=== PATIENT | female | born 1955 | race Caucasian/White ===

== ENCOUNTER 2017-06-16 09:55 | Inpatient (IN) ==
[2017-06-15 18:27] LABS: Basophils # (Auto) 0 K/mcL (0.0-0.3); Basophils % (Auto) 0.4 % (0.0-2.0); Eosinophils # (Auto) 0.2 K/mcL (0.0-0.7); Eosinophils % (Auto) 3.1 % (0.0-7.0); Granulocytes % (Auto) 48.6 % (38.0-78.0); Lymphocytes # (Auto) 3.4 K/mcL (1.5-4.8); Lymphocytes % (Auto) 42.7 % (15.5-49.0); Mean Cell Volume 90.8 fL (80.0-100.0); Mean Corpuscular HGB Conc 33.3 g/dL (31.0-36.0); Mean Corpuscular Hemoglobin 30.2 pg (26.0-34.0); Monocytes # (Auto) 0.4 K/mcL (0.1-0.9); Monocytes % (Auto) 5.2 % (1.0-12.0); Platelet Count 245 K/mcL (140-440); RBC 4.62 M/mcL (4.00-5.20); Red Cell Distribution Width 14.5 % (11.5-14.5)
[2017-06-15 19:33] LABS: Blood Urea Nitrogen 18 mg/dl (8-23)
[2017-06-15 20:15] LABS: Appearance,Urine CLEAR; Bilirubin,Urine NEG (NEG); Color,Urine YELLOW; Glucose,Urine (UA) NEGATIVE (NEG); Leukocyte Esterase,Urine NEG /uL (NEG); Protein,Urine NEG (NEG); Specific Gravity,Urine 1.014 (1.000-1.035); Urine Blood NEG mg/dL (<0.03); Urobilinogen,Urine NEG (NEG)
[~2017-06-16 09:55] MED LIST: CELECOXIB 200 MG CAPSULE PO SCH; PREGABALIN 75 MG CAPSULE PO SCH; ceFAZolin 1 GM VIAL IV SCH; oxyCODONE 10 MG TAB.ER.12H PO SCH
--- NOTE | 2017-06-16 12:15 | General Surgery Progress Note ---
Surgical - Auxillary Note - Subjective Patient Information: Note initiated : 06/16/17 at 12:12 pm Service Date, if different from initiated Date: [] Patient: Marija Duncan 62 y/o F admitted on 06/16/17 for Total Shoulder Arthroplasty with Bicep tenodesis. Chief Complaint: [abnormal EKG read by nicole, possible ischemia er visit 1 yr ago for dizziness, no card w/u done has sscp occ, states is her typical gerd no other card sxs extensive d/w pt and of risks for proceeding, <5% for MACE will need to f/u w/ card post op for card eval based on abn ekg and sscp sxs pt understands, agrees and wishes to proceed. ]
[2017-06-16] MEDS ORDERED: GLYCOPYRROLATE 0.2 MG/ML VIAL IV ONE (13:05)
[2017-06-16] MEDS ORDERED: ONDANSETRON 4 MG/2 ML VIAL IV ONE (13:05)
[2017-06-16] MEDS ORDERED: LIDOCAINE HCL/PF 100 MG/5 ML SYRINGE IV ONE (13:05)
[2017-06-16] MEDS ORDERED: KETAMINE 100 MG/ML ML IV ONE (13:05)
[2017-06-16] MEDS ORDERED: MIDAZOLAM 2 MG/2 ML VIAL IV ONE (13:05)
[2017-06-16] MEDS ORDERED: HYDROmorphone 2 MG/ML VIAL IV ONE (13:05)
[2017-06-16] MEDS ORDERED: PROPOFOL 200 MG/20 ML VIAL IV ONE (13:05)
[2017-06-16] MEDS ORDERED: TRANEXAMIC ACID 1,000 MG/10 ML VIAL IV ONE ×2 (13:05→14:23)
[2017-06-16] MEDS ORDERED: MEPERIDINE 50 MG/ML INJECTION IV PRN (13:56)
[2017-06-16] MEDS ORDERED: METHOCARBAMOL 1,000 MG/10 ML VIAL IV PRN (13:56)
[2017-06-16] MEDS ORDERED: IPRATROPIUM/ALBUTEROL 3 ML AMPUL.NEB NEB PRN (13:56)
[2017-06-16] MEDS ORDERED: HYDROmorphone 2 MG/ML VIAL IV PRN (13:56)
[2017-06-16] MEDS ORDERED: PROMETHAZINE 25 MG/ML VIAL IV PRN (13:56)
[2017-06-16] MEDS ORDERED: ACETAMINOPHEN 1,000 MG/100 ML BOTTLE IV ONE (13:56)
[2017-06-16] MEDS ORDERED: ONDANSETRON 4 MG/2 ML VIAL IV PRN ×2 (13:56→14:23)
[2017-06-16] MEDS ORDERED: LACTATED RINGERS 1,000 ML IV SCH (14:00)
[2017-06-16] MEDS ORDERED: POLYETHYLENE GLYCOL 3350 17 GM PACKET PO PRN (14:23)
[2017-06-16] MEDS ORDERED: MAGNESIUM HYDROXIDE 30 ML ORAL.SUSP PO PRN (14:23)
[2017-06-16] MEDS ORDERED: BISACODYL 10 MG SUPP.RECT PR PRN (14:23)
[2017-06-16] MEDS ORDERED: FLEETS ADULT ENEMA PR PRN (14:23)
[2017-06-16] MEDS ORDERED: BENZOCAINE/MENTHOL 1 LOZENGE PO PRN (14:23)
--- NOTE | 2017-06-16 14:23 | Brief Operative Note ---
Date of procedure: 06/16/17 Pre-op diagnosis: Left shoulder severe OA Post-op diagnosis: same Procedure: 1) Left total shoulder arthroplasty 2) Biceps tenodesis Grafts/Implants: Yes (Tornier Aequalis 43x16 resurfacing head, M35 cortiloc glenoid) Anesthesia: GETA Findings: severe arthritis Complications: none Surgeon: Froylan Colindres Relay Shop Tester: Juan R Lowery Estimated blood loss (cc): 100 Specimens Removed/Pathology: none sent Condition: stable Disposition: PACU
[2017-06-16] MEDS ORDERED: DOCUSATE SODIUM 100 MG CAPSULE PO PRN (14:28)
[2017-06-16] MEDS ORDERED: ALBUTEROL SULFATE 1 PUFF INHALER INH PRN (14:28)
[2017-06-16] MEDS ORDERED: BUPIVACAINE 0.5% 50 ML VIAL IJ ONE (14:44)
--- NOTE | 2017-06-16 15:05 | Operative Note ---
DATE OF OPERATION: 06/16/2017 PREOPERATIVE DIAGNOSIS: Left shoulder severe osteoarthritis. POSTOPERATIVE DIAGNOSIS: Left shoulder severe osteoarthritis. PROCEDURE PERFORMED: 1. Left total shoulder arthroplasty using the DePuy Aequalis 43 x 16 resurfacing head and a Cortiloc medium 35 glenoid. 2. Biceps tenodesis. SURGEON: Froylan Colindres MD. AIRLINE CAPTAIN: Pan Lowery PA-C. ANESTHESIA: General. DRAINS: None. SPECIMENS: Biceps stump which was discarded. BLOOD LOSS: 100 mL. POSTOPERATIVE CONDITION: Stable. INDICATIONS FOR SURGERY: This is a 62-year-old female who has had longstanding multi-year history of severe left shoulder pain. Radiographs showed severe [id number] osteoarthritis. FINDINGS AT SURGERY: As above. Post implantation showed good component position, joint stability and range of motion. PROCEDURE IN DETAIL: The patient had been seen preoperatively and informed consent had been obtained after discussion of risks and benefits of surgery. Risks including, but not limited to, bleeding, possibly requiring transfusion; infection, possibly requiring implant removal and prolonged IV antibiotics; injury to nerves, blood vessels, other surrounding structures; anesthetic risks; incomplete or no resolution of symptoms; dislocation; stiffness; pain; popping; possibility of needing further revision surgery. She understood these risks and wished to proceed. Correct operative site was marked in preoperative holding and patient was taken to the operating room and general anesthesia was induced. She was carefully positioned in the beach chair position and pressure points carefully padded. Left shoulder and upper extremity were then carefully prepped and draped in normal sterile fashion, and a time-out was performed verifying patient name, operative site, and plan. A standard deltopectoral incision was made with scalpel through skin and subcutaneous tissue and then hemostasis was obtained with Bovie cautery. Careful blunt dissection was taken down onto the cephalic vein and then Irrisept was irrigated. We dissected bluntly medial to the cephalic vein and blunt finger dissection was used to develop the subdeltoid space. Wright deltoid retractor was placed. The lateral edge of the conjoined tendon was identified and blue handle retractor placed underneath. We then irrigated Irrisept again. The biceps was palpated and then unroofed. We aspirated a large joint effusion. We amputated the biceps off the glenoid and a large curved osteotome was used to perform a lesser tuberosity osteotomy to detach the subscapularis. Traction stitch was placed around this and then humeral head was dislocated out anteriorly. Capsule was released around the inferior neck. Curved osteotome was used to remove osteophyte and then the glenoid was exposed, subluxing the humeral head posteriorly. We then circumferentially excised the labrum and then carefully released capsule right on bone around the inferior portion of the glenoid. Once we had adequate glenoid exposure, we sized this to a 35 curvature and a size medium. We used a 10 degree angled guide pin guide and placed this. We then used the reamer for the medium 35 and reamed until we had contacted bone circumferentially. We then drilled over the guide pin for the central peg and then the peripheral peg drill guide was placed, and we drilled our three peripheral pegs. We trialed the trial and it seated well, so we opened a Cortiloc medium 35 glenoid component. We irrigated the joint with Irrisept. DBX was placed in the central flutes of the glenoid and cement was mixed. We then pulse lavaged with saline and then injected the cement into the three peripheral holes, pressurizing, and then impacted the glenoid component until it was fully seated. We held this absolutely still until cement had fully hardened. We then redislocated our humeral head and sized this to a 43. We used the guide to place our guide pin and then reamed down until we had contacted bone circumferentially. She did have a small cyst in the central part of the head which we did a limited amount of curetting. We used the punch and then irrigated with Irrisept. After a minute we pulse lavaged and then placed the remainder of the DBX putty in the central cyst. We then impacted the implant until it was fully seated. We checked that we did have a posterior subluxation of 50%. The joint was irrigated with Irrisept, after a minute pulse lavage, and then we used a pin to create two holes in the biceps intertubercular groove. We then used #2 FiberWire through these holes around the lesser tuberosity fragment in a [id number] stitch to repair our subscapularis. We also placed several more [id number] in the rotator interval proximally and then used a free needle to pass our traction stitch through the biceps and through bone laterally for our tenodesis. Another Irrisept irrigation was done, after a minute more pulse lavage, and then running #1 Vicryl stitch was used for deltopectoral closure. Then a final Irrisept irrigation was done, after a minute final pulse lavage, then 2-0 Monocryl for subcutaneous and vicente for skin. Xeroform and sterile dressing were applied, and then the arm was placed in an abductor immobilizer. The patient was then awakened, extubated, and transferred to recovery in stable condition. HARDY:radha Job ID: [id number] Doc ID: [id number] Froylan Colindres MD
[2017-06-16] MEDS: KETOROLAC 30 MG/ML VIAL IV PRN ×2 (15:13→21:19)
[2017-06-16] MEDS: fentaNYL 100 MCG/2 ML VIAL IV PRN ×2 (15:15→15:23)
--- NOTE | 2017-06-16 15:31 | XRay Report ---
HISTORY: Reason for Exam:Post-OP Total Shoulder FINDINGS: There is a well-positioned left shoulder prosthesis. No fracture or abnormal soft tissue calcification is present. IMPRESSION: Well-positioned left shoulder prosthesis Interpreted and Authenticated by: Hunter Zaldivar 06/16/17
[2017-06-16] MEDS ORDERED: hydrALAZINE 20 MG/ML VIAL IV ONE (16:26)
[2017-06-16] MEDS: 0.9 % SODIUM CHLORIDE 1,000 ML IV SCH (17:09)
[2017-06-16] MEDS: OXYBUTYNIN CHLORIDE 5 MG TABLET PO SCH ×2 (17:10→20:27)
[2017-06-16] MEDS: ceFAZolin 1 GM VIAL IV SCH (20:27)
[2017-06-16] MEDS: 0.9 % SODIUM CHLORIDE 10 ML SYRINGE IV SCH (20:28)
[2017-06-16] MEDS: DOCUSATE SODIUM 100 MG CAPSULE PO SCH (20:28)
[2017-06-16] MEDS ORDERED: SENNOSIDES 1 TABLET PO SCH (21:00)
[2017-06-16] MEDS: oxyCODONE/APAP 5/325MG TABLET PO PRN (22:00)
[2017-06-17] MEDS: 0.9 % SODIUM CHLORIDE 1,000 ML IV SCH ×2 (00:28→09:08)
[2017-06-17] MEDS: oxyCODONE/APAP 5/325MG TABLET PO PRN ×3 (02:39→09:30)
[2017-06-17] MEDS: 0.9 % SODIUM CHLORIDE 10 ML SYRINGE IV SCH (04:45)
[2017-06-17] MEDS: ceFAZolin 1 GM VIAL IV SCH (04:45)
[2017-06-17] MEDS ORDERED: OMEPRAZOLE 20 MG CAPSULE PO SCH (07:30)
[2017-06-17] MEDS ORDERED: LEVOTHYROXINE 150 MCG TABLET PO SCH (07:30)
[2017-06-17] MEDS ORDERED: LEVOTHYROXINE 25 MCG TABLET PO SCH (07:30)
--- NOTE | 2017-06-17 07:58 | Discharge Summary ---
Ortho Discharge - TSA - Patient Instructions Diet: Regular Diet Activity: non weight bearing Total Shoulder Protocol: Leave immobilizer in place except for bathing and ROM. Abduction pillow. Continue to wear sling until seen by physician. Codman Pendulum : These exercises use momentum produced by your body to move your shoulder joint. Bend your knees and shift your weight to your front leg, then back, allowing your arm to swing in the same directions. Using the same technique, alternately shift your weight between your right and left legs, allowing your arm to swing from side to side. These exercises are also performed in counterclockwise and clockwise circular motions. Typically these exercises are performed several times per day, for a set number repetitions or minutes, such as 20 times in a row or 5 minutes at a time. Dressing Care: May shower in 2 days, Aquacel Ag - leave on for 5 days - Follow Up Plan Follow Up Appointments: Froylan Colindres MD [Physician] - Disposition: Home, Self-Care Prognosis: Good Rehab Potential: Good - Orders For Discharge Additional Discharge Orders: Physical Therapy at Discharge - TSA Location: Determined By Patient Brace/Splint Location: Determined By Patient
[2017-06-17] MEDS ORDERED: CEPHALEXIN 250 MG CAPSULE PO SCH (09:00)
[2017-06-17] MEDS ORDERED: CELECOXIB 200 MG CAPSULE PO SCH (09:00)
[2017-06-17] MEDS ORDERED: DULoxetine 30 MG CAPSULE PO SCH (09:00)
[2017-06-17] MEDS ORDERED: buPROPion 150 MG TAB.SR.12H PO SCH (09:00)
[2017-06-17] MEDS: DOCUSATE SODIUM 100 MG CAPSULE PO SCH (09:04)
[2017-06-17] MEDS: OXYBUTYNIN CHLORIDE 5 MG TABLET PO SCH (09:04)
== END 2017-06-17 09:35 | disposition home or self-care (01) | DRG 483 ==
LOC: MEDSUR 09:55
PROVIDERS: ADMIT Orthopaedic Surgery; ATTEND Orthopaedic Surgery

== ENCOUNTER 2018-04-20 06:51 | Inpatient (IN) ==
[2018-04-14 15:28] LABS: Appearance,Urine CLEAR; Bilirubin,Urine NEG (NEG); Color,Urine YELLOW; Glucose,Urine (UA) NEGATIVE (NEG); Leukocyte Esterase,Urine NEG /uL (NEG); Protein,Urine NEG (NEG); Specific Gravity,Urine 1.017 (1.000-1.035); Urine Blood NEG mg/dL (<0.03); Urobilinogen,Urine NEG (NEG)
[2018-04-14 16:56] LABS: Basophils # (Auto) 0 K/mcL (0.0-0.3); Basophils % (Auto) 0.3 % (0.0-2.0); Eosinophils # (Auto) 0 K/mcL (0.0-0.7); Eosinophils % (Auto) 0.1 % (0.0-7.0); Granulocytes % (Auto) 70.8 % (38.0-78.0); Lymphocytes # (Auto) 2.7 K/mcL (1.5-4.8); Lymphocytes % (Auto) 21.9 % (15.5-49.0); Mean Cell Volume 92.1 fL (80.0-100.0); Mean Corpuscular HGB Conc 32.4 g/dL (31.0-36.0); Monocytes # (Auto) 0.8 K/mcL (0.1-0.9); Monocytes % (Auto) 6.9 % (1.0-12.0); Platelet Count 288 K/mcL (140-440); RBC 4.79 M/mcL (4.00-5.20); Red Cell Distribution Width 14.9 % (11.5-14.5)
[2018-04-14 17:36] LABS: Estimated Average Glucose(eAG) 111 mg/dL; Hemoglobin A1C 5.5 % HGB (4.0-6.0)
[2018-04-20] MEDS ORDERED: PREGABALIN 75 MG CAPSULE PO SCH (07:00)
[2018-04-20] MEDS ORDERED: CELECOXIB 200 MG CAPSULE PO SCH (07:00)
[2018-04-20] MEDS ORDERED: ceFAZolin 1 GM VIAL IV SCH (07:00)
[2018-04-20] MEDS ORDERED: oxyCODONE 10 MG TAB.ER.12H PO SCH (07:00)
[2018-04-20] MEDS ORDERED: HEPARIN 10,000 UNIT/ML VIAL IR ONE (09:06)
[2018-04-20] MEDS ORDERED: HEPARIN 20,000 UNIT/ML VIAL IR ONE (09:07)
[2018-04-20] MEDS ORDERED: LIDOCAINE HCL/PF 100 MG/5 ML SYRINGE IV ONE (10:35)
[2018-04-20] MEDS ORDERED: PROPOFOL 200 MG/20 ML VIAL IV ONE (10:35)
[2018-04-20] MEDS ORDERED: DEXAMETHASONE 10 MG/ML VIAL IV ONE (10:35)
[2018-04-20] MEDS ORDERED: TRANEXAMIC ACID 1,000 MG/10 ML VIAL IV ONE (10:35)
[2018-04-20] MEDS ORDERED: MIDAZOLAM 5 MG/5 ML VIAL IV ONE (10:35)
[2018-04-20] MEDS ORDERED: ONDANSETRON 4 MG/2 ML VIAL IV ONE (10:35)
[2018-04-20] MEDS ORDERED: FLUMAZENIL 0.1 MG/ML ML IV PRN (11:32)
[2018-04-20] MEDS ORDERED: NALOXONE HCL 0.4 MG/ML VIAL IV PRN (11:32)
[2018-04-20] MEDS ORDERED: ACETAMINOPHEN 1,000 MG/100 ML BOTTLE IV ONE (11:32)
[2018-04-20] MEDS ORDERED: IPRATROPIUM/ALBUTEROL 3 ML AMPUL.NEB NEB PRN (11:32)
[2018-04-20] MEDS ORDERED: diphenhydrAMINE 50 MG/ML VIAL IV PRN (11:32)
[2018-04-20] MEDS ORDERED: fentaNYL 100 MCG/2 ML VIAL IV PRN (11:32)
[2018-04-20] MEDS ORDERED: ONDANSETRON 4 MG/2 ML VIAL IV PRN ×2 (11:32→12:10)
[2018-04-20] MEDS ORDERED: PROMETHAZINE 25 MG/ML VIAL IV PRN (11:32)
[2018-04-20] MEDS ORDERED: MEPERIDINE 25 MG/ML SYRINGE IV PRN (11:32)
[2018-04-20] MEDS ORDERED: LACTATED RINGERS 250 ML IV PRN (11:32)
[2018-04-20] MEDS ORDERED: KETOROLAC 15 MG/ML VIAL IV PRN (11:32)
[2018-04-20] MEDS ORDERED: LACTATED RINGERS 1,000 ML IV SCH (11:45)
--- NOTE | 2018-04-20 12:09 | Brief Operative Note ---
Date of procedure: 04/20/18 Pre-op diagnosis: Left hip DJD Post-op diagnosis: same Procedure: Left anterior total hip arthroplasty Grafts/Implants: Yes (Depuy Actis 5 Hi stem, +1.5 36 delta head, 56 cup, +2 altrx liner) Anesthesia: spinal, GLMA Findings: severe arthritis Complications: none Surgeon: Froylan Colindres Physical Sciences Professor: Juan R Lowery Estimated blood loss (cc): 250 Specimens Removed/Pathology: none sent Condition: stable Disposition: PACU
[2018-04-20] MEDS ORDERED: KETOROLAC 30 MG/ML VIAL IV PRN (12:10)
[2018-04-20] MEDS ORDERED: BENZOCAINE/MENTHOL 1 LOZENGE PO PRN (12:10)
[2018-04-20] MEDS ORDERED: TRANEXAMIC ACID 1,000 MG/10 ML VIAL IV SCH (12:10)
[2018-04-20] MEDS ORDERED: POLYETHYLENE GLYCOL 3350 17 GM PACKET PO PRN (12:10)
[2018-04-20] MEDS ORDERED: BISACODYL 10 MG SUPP.RECT PR PRN (12:10)
[2018-04-20] MEDS ORDERED: FLEETS ADULT ENEMA PR PRN (12:10)
[2018-04-20] MEDS ORDERED: MAGNESIUM HYDROXIDE 30 ML ORAL.SUSP PO PRN (12:10)
[2018-04-20] MEDS ORDERED: ALBUTEROL SULFATE 1 PUFF INHALER INH PRN (12:13)
[2018-04-20] MEDS ORDERED: DOCUSATE SODIUM 100 MG CAPSULE PO PRN (12:13)
--- NOTE | 2018-04-20 13:09 | XRay Report ---
CLINICAL INFORMATION: Left hip replacement TECHNIQUE: 0.4 minutes fluoroscopy utilized by Dr. Colindres. Left total hip arthroplasty performed. Intraoperative spot films obtained IMPRESSION: Intraoperative fluoroscopy utilized for left hip replacement Interpreted and Authenticated by: Sincere Mckenzie 04/20/18
--- NOTE | 2018-04-20 13:10 | Operative Note ---
DATE OF OPERATION: 04/20/2018 PREOPERATIVE DIAGNOSIS: Left hip severe osteoarthritis. POSTOPERATIVE DIAGNOSIS: Left hip severe osteoarthritis. PROCEDURE PERFORMED: Left anterior total hip arthroplasty placing a DePuy Actis size 5 high offset femoral stem, a +1.5, 36 mm delta ceramic head ball, a 56 Sutton cup with a +2 AltrX liner. SURGEON: Froylan Colindres MD RADIO FREQUENCY DESIGN ENGINEER: Pan Lowery PA-C ANESTHESIA: Spinal plus general. DRAINS: None. SPECIMENS: Femoral head and reamings, which were discarded. BLOOD LOSS: 250 mL COMPLICATIONS: None. POSTOPERATIVE CONDITION: Stable. INDICATIONS FOR SURGERY: This is a 62-year-old female who has had longstanding progressive worsening left hip pain. Radiographs showed severe [id number] osteoarthritis. FINDINGS AT SURGERY: She had severe arthritis with a very large joint effusion. Post-implantation showed good component position with leg length equality and offset. PROCEDURE IN DETAIL: The patient had been seen preoperatively and informed consent had been obtained after discussion of risks and benefits of surgery. Risks including, but not limited to, bleeding, possibly requiring transfusion; infection, possibly requiring implant removal and prolonged IV antibiotics; injury to nerves, blood vessels, and other surrounding structures; anesthetic risks, leg length discrepancy, dislocation; fracture; DVT and pulmonary embolus risks; and the possibility of needing further revision surgery. She understood these risks and wished to proceed. Correct operative site was marked and the patient was given spinal anesthesia. She was then taken to the operating room and LMA general given. She was carefully positioned on the fracture table and then the left hip and groin were carefully prepped and draped in normal sterile fashion. A timeout was performed verifying patient name, operative site, and plan. Ioban was used to cover all skin surfaces and the scalpel was used to make a standard anterior incision through skin and subcutaneous tissue. Hemostasis was obtained with Bovie cautery. Careful blunt dissection was taken down on the tensor fascia and then this was undermined circumferentially. IrriSept was irrigated and then a ring retractor placed. Tensor fascia was incised in line with the muscle fibers and then careful blunt dissection taken medial to the muscle belly. Blunt cobra retractors were placed on the superior and inferior neck and upon placement of the inferior cobra the capsule was punctured and a very large joint effusion was suctioned. Circumflex vessels were coagulated and cut and vastus fascia split distally. Anterior capsulectomy was performed and capsule release was taken out towards the trochanters. Traction was placed on the leg and corkscrew placed in the femoral head. Osteotome was used under fluoro to identify our approximate neck cut trajectory and then oscillating tip saw used to make our osteotomy. The femoral head was removed and the acetabulum was exposed. Soft tissue was removed from the periphery as well as from the floor using Bovie and then we began reaming initially directly medializing to the tear drop and then increasing reamer size and angle. We did not get any rim ream until a 55 reamer. We opened a 56 3-hole Sutton cup. The acetabulum was irrigated with IrriSept, after a minute it was pulse lavaged with saline. The [id number] was used to impact the cup at approximately 35 to 40 degrees of inclination and about 25 to 30 degrees of anteversion. We did get good pressfit. I trialled a +2 liner trial, screwing this in the cup. We then removed traction, externally rotated the leg and released capsule around the medial neck posteriorly then to the lesser trochanter. The leg was then extended and adducted. Bovie was used to release capsule out towards the greater trochanter. After we had adequate proximal femur exposure, we used a box osteotome to get gain canal entry. An awl was used to identify canal trajectory, which was very tight distally. We then used a rongeur and rasp to lateralize. We sequentially broached up to a size 3 before it seemed to be getting pressfit. We went ahead and trialed with a +1.5 head ball and a high offset neck trial. Hip was reduced without excessive tension. AP pelvis was taken to verify neutral rotation and AP of the nonoperative and operative hips were overlaid. Our offset appeared good; however, the leg length appeared little long and the stem also appeared undersized, so we redislocated and removed the trial implants. A rongeur and rasp were used to lateralize more and then we broached up to a size 5. We were able to seat this down below the neck cut several more millimeters, so we calcar planed down. We removed the 5 trial. The femoral canal was irrigated with IrriSept. We re-exposed the acetabulum. A +2 AltrX liner was opened. The liner trial was removed and the definitive liner was aligned and impacted after placing a center hole cover. We checked that all tabs were flush with a tonsil and then traction was verified to be off and we re-exposed the proximal femur. We copiously pulse lavaged with saline and then the 5 high offset stem was impacted. This did seat down on our neck cut, so we opened a +1.5, 36 mm delta ceramic head ball. The stem was carefully cleaned and dried and then head ball briskly impacted with multiple blows from the mallet. We then reduced the hip again without excessive tension. Final fluoro images were saved and printed. We irrigated the joint with IrriSept, after a minute pulse lavaged with saline. Tensor fascia was closed with two #1 running Vicryl stitches, one running proximal and one running distal. The ring retractor was removed and IrriSept was irrigated again and after a minute pulse lavaged with saline and then fat was tacked to fascia with Vicryl, as well as several deep fat layer stitches with Vicryl; 2-0 Monocryl was used for subq and vicente for skin. Xeroform and a sterile dressing were applied. The patient was then transferred to [facility], extubated, and taken to recovery in satisfactory condition. BJB:asad Job ID: [id number] Doc ID: [id number] Froylan Colindres MD
--- NOTE | 2018-04-20 13:11 | XRay Report ---
CLINICAL INFORMATION: Postsurgical follow-up TECHNIQUE: AP pelvis. AP and crosstable lateral left hip COMPARISON: None. FINDINGS: Status post left total hip arthroplasty. Anatomic alignment demonstrated. There is postsurgical soft tissue gas. There are skin viecnte overlying the left hip. IMPRESSION: Left total hip arthroplasty Interpreted and Authenticated by: Sincere Mckenzie 04/20/18
[2018-04-20] MEDS: 0.9 % SODIUM CHLORIDE 1,000 ML IV SCH (16:02)
[2018-04-20] MEDS: 0.9 % SODIUM CHLORIDE 10 ML SYRINGE IV SCH ×2 (16:02→21:40)
[2018-04-20] MEDS: OXYBUTYNIN CHLORIDE 5 MG TABLET PO SCH ×2 (16:02→21:39)
[2018-04-20] MEDS: ceFAZolin 1 GM VIAL IV SCH (17:46)
[2018-04-20] MEDS: HYDROcodone/APAP 10/325MG TABLET PO PRN ×2 (18:36→22:40)
[2018-04-20] MEDS ORDERED: SENNOSIDES/DOCUSATE SODIUM 1 TAB TABLET PO SCH (21:00)
[2018-04-20] MEDS ORDERED: SENNOSIDES 1 TABLET PO SCH (21:00)
[2018-04-20] MEDS: DOCUSATE SODIUM 100 MG CAPSULE PO SCH (21:38)
[2018-04-20] MEDS: ASPIRIN 325 MG ENTERIC COATED TABLET PO SCH (21:39)
[2018-04-21] MEDS: 0.9 % SODIUM CHLORIDE 1,000 ML IV SCH (00:53)
[2018-04-21] MEDS: ceFAZolin 1 GM VIAL IV SCH (01:00)
[2018-04-21] MEDS: HYDROcodone/APAP 10/325MG TABLET PO PRN ×3 (03:30→09:43)
[2018-04-21] MEDS: 0.9 % SODIUM CHLORIDE 10 ML SYRINGE IV SCH ×3 (03:32→06:02)
[2018-04-21] MEDS ORDERED: LEVOTHYROXINE 150 MCG TABLET PO SCH (07:30)
[2018-04-21] MEDS ORDERED: OMEPRAZOLE 20 MG CAPSULE PO SCH (07:30)
--- NOTE | 2018-04-21 07:51 | Discharge Summary ---
Providers - Providers Patient information: Note initiated : 04/21/18 at 7:48 am Service Date, if different from initiated Date: [] Patient: Marija Duncan 62 y/o F admitted on 04/20/18 for Left Total Hip Arthroplasty. Chief Complaint: [] Discharge date: 04/21/18 Hospitalization Hospital course: Pt was admitted for a MONSERRAT. Pt underwent procedure on the day of admission. Pt discharged on post-op day 1. Pt will take ASA for DVT prophylaxis. Will attend out-pt PT.Will f/u at [facility] in 2 weeks. Discharge diagnosis: L hip OA Exam - Exam Clean and dry: Yes Weight bearing status: as tolerated Ortho Discharge - [facility] - Patient Instructions Diet: Regular Diet Activity: activity as tolerated Total Hip Protocol: Follow activity instructions as provided by Physical Therapy. Dressing Care: May shower in 2 days - Follow Up Plan Disposition: Home, Self-Care Prognosis: Good Rehab Potential: Good Overall status at discharge: patient is progressing back to baseline - Orders For Discharge Prescriptions: Aspirin [Ecotrin] 325 mg PO BID #60 tab.ec HYDROcodone/APAP 10/325MG [[place] 10-325Mg] 1 - 2 tab PO Q4HP PRN #75 tab PRN Reason: Pain Level 3-6 Pending Studies Resuscitation Status Full Code Diet Regular Diet Start WedApr 20 1210 Hydrocodone Bitart/Acetaminophen ([place] 10/325mg) 0 tab PO Q4HP PRN PRN Reason: PAIN LEVEL 3-6 Last Admin: 04/21/18 05:52 Dose: 1 tab Documented by: Admin: 04/21/18 03:30 Dose: 1 tab Documented by: Admin: 04/20/18 22:40 Dose: 2 tab Documented by: Admin: 04/20/18 18:36 Dose: 1 tab Documented by: LILY Aspirin (Ecotrin) 325 mg PO BID [facility] Last Admin: 04/20/18 21:39 Dose: 325 mg Documented by: ADOLPH Docusate Sodium (Colace) 100 mg PO BID [facility] Last Admin: 04/20/18 21:38 Dose: 100 mg Documented by: ADOLPH Levothyroxine Sodium (Synthroid) 150 mcg PO ACB [facility] Last Admin: 04/21/18 07:19 Dose: 150 mcg Documented by: FMF Morphine Sulfate (Morphine) 0 mg IV Q1HP PRN PRN Reason: PAIN LEVEL > 6 Last Admin: 04/21/18 06:02 Dose: 2 mg Documented by: ADOLPH Omeprazole (Prilosec) 20 mg PO ACB [facility] Last Admin: 04/21/18 07:19 Dose: 20 mg Documented by: GEORGINA Oxybutynin Chloride (Ditropan) 5 mg PO TID [facility] Last Admin: 04/20/18 21:39 Dose: 5 mg Documented by: Admin: 04/20/18 16:02 Dose: Not Given Documented by: LILY Senna (Senokot) 2 tab PO HS [facility] Last Admin: 04/20/18 21:38 Dose: 2 tab Documented by: ADOLPH Sodium Chloride (Saline Flush) 10 ml IV Q8 [facility] Last Admin: 04/21/18 06:02 Dose: 10 ml Documented by: Admin: 04/21/18 04:35 Dose: Not Given Documented by: Admin: 04/21/18 03:32 Dose: 10 ml Documented by: Admin: 04/20/18 21:40 Dose: Not Given Documented by: Admin: 04/20/18 16:02 Dose: Not Given Documented by: LILY Shift Summary 04/21/18 02:54 Shift Summary by Mila Chavez Addendum entered by Mila Chavez R.N. 04/21/18 06:10: Second [place] 5-325 given approx. 0600 as well as IV Morphine sulfate 2mg for 8/10 pain to L hip. Addendum entered by Mila Chavez R.N. 04/21/18 03:52: [place] 5-325 one tab given this AM approx. 0330. Original Note: VSS. A&Ox4. Medicated with [place] 10-325 two tabs approx. 2245 with effective results. Ice on/off. Dressing to L hip dry and intact with small amount of shadow drainage present. IV to L FA is SL. Up to bathroom with FWW and SBA. Post void bladder scan was 12cc. Uses call light to make needs known. Foot pumps in place when in bed. Initialized on 04/21/18 02:54 - END OF NOTE
[2018-04-21] MEDS ORDERED: buPROPion 150 MG TAB.XL.24H PO SCH (09:00)
[2018-04-21] MEDS ORDERED: DULoxetine 30 MG CAPSULE PO SCH (09:00)
[2018-04-21] MEDS: ASPIRIN 325 MG ENTERIC COATED TABLET PO SCH (09:18)
[2018-04-21] MEDS: DOCUSATE SODIUM 100 MG CAPSULE PO SCH (09:18)
[2018-04-21] MEDS: OXYBUTYNIN CHLORIDE 5 MG TABLET PO SCH (09:18)
== END 2018-04-21 13:00 | disposition home or self-care (01) | DRG 470 ==
LOC: MEDSUR 06:51
PROVIDERS: ADMIT Orthopaedic Surgery; ATTEND Orthopaedic Surgery

== ENCOUNTER 2019-01-11 09:48 | Inpatient (IN) ==
[2019-01-05 10:22] LABS: Appearance,Urine CLEAR; Bilirubin,Urine NEG (NEG); Color,Urine STRAW; Culture Indicated,Urine NO; Glucose,Urine (UA) NEGATIVE (NEG); Ketones,Urine NEG (NEG); Leukocyte Esterase,Urine NEG /uL (NEG); Nitrate,Urine NEG (NEG); Protein,Urine NEG (NEG); Specific Gravity,Urine 1.006 (1.000-1.035); Urine Blood NEG mg/dL (<0.03); Urobilinogen,Urine NEG (NEG)
[2019-01-05 11:48] LABS: Basophils # (Auto) 0 K/mcL (0.0-0.3); Basophils % (Auto) 0.4 % (0.0-2.0); Eosinophils # (Auto) 0.1 K/mcL (0.0-0.7); Eosinophils % (Auto) 1.4 % (0.0-7.0); Granulocytes % (Auto) 61.5 % (38.0-78.0); Hematocrit 44.1 % (36.0-48.0); Hemoglobin 14.5 g/dL (12.0-15.0); Lymphocytes # (Auto) 2.5 K/mcL (1.5-4.8); Lymphocytes % (Auto) 31.5 % (15.5-49.0); Mean Cell Volume 92.1 fL (80.0-100.0); Mean Platelet Volume 8.1 fL (7.4-10.4); Monocytes # (Auto) 0.4 K/mcL (0.1-0.9); Monocytes % (Auto) 5.2 % (1.0-12.0); Platelet Count 240 K/mcL (140-440); RBC 4.78 M/mcL (4.00-5.20); Red Cell Distribution Width 14.9 % (11.5-14.5)
[2019-01-05 12:04] LABS: Blood Urea Nitrogen 17 mg/dl (8-23); Calcium 9.6 mg/dl (8.6-10.4); Carbon Dioxide 28 mmol/L (22-30); Chloride 101 mmol/L (96-108); Glomerular Filtration Rate 78; Glucose 101 mg/dL (70-105)
[2019-01-05 12:17] LABS: Estimated Average Glucose(eAG) 120 mg/dL; Hemoglobin A1C 5.8 % HGB (4.0-6.0)
[~2019-01-11 09:48] MED LIST changes: +0.9 % SODIUM CHLORIDE 9 ML, KETOROLAC 30 MG, ROPIVACAINE HCL/PF 49.5 ML, EPINEPHrine 0.... IJ SCH; +IPRATROPIUM/ALBUTEROL 3 ML AMPUL.NEB NEB PRN; +SCOPOLAMINE 1 PATCH PATCH TOPICAL PRN; -ceFAZolin 1 GM VIAL IV SCH; +ceFAZolin 2 GM in DEXTROSE 5% IN WATER 50 ML IV SCH
[2019-01-11] MEDS ORDERED: ONDANSETRON 4 MG/2 ML VIAL IV ONE (15:20)
[2019-01-11] MEDS ORDERED: DEXAMETHASONE 10 MG/ML VIAL IV ONE (15:20)
[2019-01-11] MEDS ORDERED: LIDOCAINE HCL/PF 100 MG/5 ML SYRINGE IV ONE (15:20)
[2019-01-11] MEDS ORDERED: PROPOFOL 200 MG/20 ML VIAL IV ONE (15:20)
[2019-01-11] MEDS ORDERED: MIDAZOLAM 5 MG/5 ML VIAL IV ONE (15:20)
[2019-01-11] MEDS ORDERED: fentaNYL 100 MCG/2 ML VIAL IV ONE (15:20)
[2019-01-11] MEDS ORDERED: hydrALAZINE 20 MG/ML VIAL IV ONE (15:20)
[2019-01-11] MEDS ORDERED: HYDROmorphone 2 MG/ML VIAL IV ONE (15:20)
[2019-01-11] MEDS ORDERED: ROPIVACAINE HCL/PF 20 ML VIAL IJ ONE (15:20)
[2019-01-11] MEDS ORDERED: METHOCARBAMOL 1,000 MG/10 ML VIAL IV PRN (16:42)
[2019-01-11] MEDS ORDERED: PROMETHAZINE 25 MG/ML VIAL IV PRN (16:42)
[2019-01-11] MEDS ORDERED: METOPROLOL TARTRATE 5 MG/5 ML VIAL IV PRN (16:42)
[2019-01-11] MEDS ORDERED: ACETAMINOPHEN 1,000 MG/100 ML BOTTLE IV ONE (16:42)
[2019-01-11] MEDS ORDERED: HYDROmorphone 2 MG/ML VIAL IV PRN ×2 (16:42→17:15)
[2019-01-11] MEDS ORDERED: fentaNYL 100 MCG/2 ML VIAL IV PRN (16:42)
[2019-01-11] MEDS ORDERED: IPRATROPIUM/ALBUTEROL 3 ML AMPUL.NEB NEB PRN (16:42)
[2019-01-11] MEDS ORDERED: ePHEDrine 50 MG/ML AMPUL IV PRN (16:42)
[2019-01-11] MEDS ORDERED: diphenhydrAMINE 50 MG/ML VIAL IV PRN (16:42)
[2019-01-11] MEDS ORDERED: MEPERIDINE 25 MG/ML SYRINGE IV PRN (16:42)
[2019-01-11] MEDS ORDERED: ONDANSETRON 4 MG/2 ML VIAL IV PRN ×2 (16:42→17:15)
[2019-01-11] MEDS ORDERED: NALOXONE HCL 0.4 MG/ML VIAL IV PRN (16:42)
[2019-01-11] MEDS ORDERED: FLUMAZENIL 0.1 MG/ML ML IV PRN (16:42)
[2019-01-11] MEDS ORDERED: ATROPINE SULFATE 0.4 MG/ML VIAL IV PRN (16:42)
[2019-01-11] MEDS ORDERED: LACTATED RINGERS 1,000 ML IV SCH (16:45)
--- NOTE | 2019-01-11 17:14 | Brief Operative Note ---
Date of procedure: 01/11/19 Pre-op diagnosis: Left knee severe DJD Post-op diagnosis: same Procedure: Left robotic assisted total knee arthroplasty Grafts/Implants: Yes Anesthesia: GETA Findings: severe arthritis Complications: none Surgeon: Froylan Colindres Advertising Associate: Juan R Lowery Estimated blood loss (cc): 30 Specimens Removed/Pathology: none sent Condition: stable Disposition: PACU
[2019-01-11] MEDS ORDERED: BENZOCAINE/MENTHOL 1 LOZENGE PO PRN (17:15)
[2019-01-11] MEDS ORDERED: BISACODYL 10 MG SUPP.RECT PR PRN (17:15)
[2019-01-11] MEDS ORDERED: FLEETS ADULT ENEMA PR PRN (17:15)
[2019-01-11] MEDS ORDERED: POLYETHYLENE GLYCOL 3350 17 GM PACKET PO PRN (17:15)
[2019-01-11] MEDS ORDERED: MAGNESIUM HYDROXIDE 30 ML ORAL.SUSP PO PRN (17:15)
[2019-01-11] MEDS ORDERED: TRANEXAMIC ACID 1,000 MG/10 ML VIAL IV ONE (17:15)
[2019-01-11] MEDS ORDERED: ALBUTEROL SULFATE 1 PUFF INHALER INH PRN (17:19)
--- NOTE | 2019-01-11 18:11 | XRay Report ---
CLINICAL INFORMATION: Post-op total knee COMPARISON: None. FINDINGS: Total knee prosthesis is anatomically aligned. No osseous abnormality. Periarticular gas and soft tissue swelling seen as expected. IMPRESSION: Negative Interpreted and Authenticated by: Sincere Reyes 01/11/19
[2019-01-11] MEDS: KETOROLAC 30 MG/ML VIAL IV SCH ×2 (18:44→23:17)
[2019-01-11] MEDS: 0.9 % SODIUM CHLORIDE 1,000 ML IV SCH (18:52)
[2019-01-11] MEDS ORDERED: ASPIRIN 325 MG ENTERIC COATED TABLET PO SCH (21:00)
[2019-01-11] MEDS ORDERED: SENNOSIDES 1 TABLET PO SCH (21:00)
[2019-01-11] MEDS ORDERED: ATORVASTATIN 40 MG TABLET PO SCH (21:00)
[2019-01-11] MEDS: MUPIROCIN OINT 2% 22GM NARES SCH (21:25)
[2019-01-11] MEDS: DOCUSATE SODIUM 100 MG CAPSULE PO SCH (21:26)
[2019-01-11] MEDS: buPROPion 150 MG TAB.XL.24H PO SCH (21:26)
[2019-01-11] MEDS: OXYBUTYNIN CHLORIDE 5 MG TABLET PO SCH (21:26)
[2019-01-11] MEDS: 0.9 % SODIUM CHLORIDE 10 ML SYRINGE IV SCH (21:26)
[2019-01-11] MEDS ORDERED: ASPIRIN 81 MG TAB.CHEW ONE (21:51)
[2019-01-11] MEDS: ceFAZolin 1 GM VIAL IV SCH (23:16)
[2019-01-12] MEDS: HYDROcodone/APAP 10/325MG TABLET PO PRN ×3 (00:15→09:19)
[2019-01-12] MEDS: 0.9 % SODIUM CHLORIDE 1,000 ML IV SCH (04:46)
[2019-01-12] MEDS: ASPIRIN 81 MG TAB.CHEW PO SCH ×2 (06:00→08:53)
[2019-01-12] MEDS: KETOROLAC 30 MG/ML VIAL IV SCH (06:09)
[2019-01-12] MEDS: 0.9 % SODIUM CHLORIDE 10 ML SYRINGE IV SCH (06:09)
[2019-01-12] MEDS: ceFAZolin 1 GM VIAL IV SCH (07:05)
[2019-01-12] MEDS ORDERED: OMEPRAZOLE 20 MG CAPSULE PO SCH (07:30)
[2019-01-12] MEDS ORDERED: LEVOTHYROXINE 150 MCG TABLET PO SCH (07:30)
--- NOTE | 2019-01-12 07:44 | Discharge Summary ---
Providers - Providers Patient information: Note initiated : 01/12/19 at 7:41 am Service Date, if different from initiated Date: [] Patient: Marija Duncan 63 y/o F admitted on 01/11/19 for Left Total Knee Arthroplasty Tha . Chief Complaint: [] Discharge date: 01/12/19 Hospitalization Hospital Course: Pt was admitted for a L TKA. Pt underwent the procedure on the day of admission. Pt was transferred to the floor for IV pain meds, IV abx, and PT. Pt discharged on Post-op day 1. Will take ASA for DVT prophylaxis. Will f/u in 2 weeks. Discharge diagnosis: L knee OA Exam - Exam Clean and dry: Yes Weight bearing status: as tolerated Ortho Discharge - TKA - Patient Instructions Diet: Regular Diet Activity: activity as tolerated Total Knee Protocol: For Total Knee: Start ROM VARUN with stationary bike or rocking chair. Work on gaining full extension of knee. Posterior dislocation precautions provided. Hip abductor strengthening and gait training instructions provided. Apply Cryocuff as instructed. Dressing Care: May shower in 2 days Patient Education: Total Knee Replacement (DC) - Follow Up Plan Follow Up Appointments: Froylan Colindres MD [Physician] - 01/26/19 11:20 am Disposition: Home, Self-Care Prognosis: Good Rehab Potential: Good Overall status at discharge: patient is progressing back to baseline - Orders For Discharge Prescriptions: Aspirin 81 mg PO BID #30 tab.chew Transmission Status: Pending to [facility] HYDROcodone/APAP 10/325MG [[place] 10-325Mg] 1 - 2 tab PO Q4HP PRN #80 tab PRN Reason: Pain Level 3-6 Prescription Printed Pending Studies Resuscitation Status Full Code Diet Consistent Carbohydrate Diet Start WedJan 11 1717 Hydrocodone Bitart/Acetaminophen ([place]wall 10/325mg) 0 tab PO Q4HP PRN PRN Reason: PAIN LEVEL 3-6 Last Admin: 01/12/19 04:45 Dose: 2 tab Documented by: Admin: 01/12/19 00:15 Dose: 2 tab Documented by: VAL Aspirin (Aspirin) 81 mg PO BID [facility] Stop: 01/17/19 23:59 Last Admin: 01/12/19 06:00 Dose: Not Given Documented by: VAL Atorvastatin Calcium (Lipitor) 40 mg PO HS [facility] Last Admin: 01/11/19 21:26 Dose: 40 mg Documented by: VAL Bupropion HCl (Wellbutrin Xl) 150 mg PO BID [facility] Last Admin: 01/11/19 21:26 Dose: 150 mg Documented by: VAL Docusate Sodium (Colace) 100 mg PO BID [facility] Last Admin: 01/11/19 21:26 Dose: 100 mg Documented by: VAL Hydromorphone HCl (Dilaudid) 0 mg IV Q2HP PRN PRN Reason: PAIN LEVEL > 6 Last Admin: 01/11/19 18:45 Dose: 1 mg Documented by: VAL Sodium Chloride (Sodium Chloride 0.9%) 1,000 mls @ 100 mls/hr IV .Q10H [facility] Last Admin: 01/12/19 04:46 Dose: Not Given Documented by: Admin: 01/11/19 18:52 Dose: 100 mls/hr Documented by: VAL Ketorolac Tromethamine (Toradol) 30 mg IV Q6 [facility] Stop: 01/13/19 12:01 Last Admin: 01/12/19 06:09 Dose: 30 mg Documented by: Admin: 01/11/19 23:17 Dose: 30 mg Documented by: Admin: 01/11/19 18:44 Dose: 30 mg Documented by: VAL Levothyroxine Sodium (Synthroid) 150 mcg PO ACB [facility] Last Admin: 01/12/19 07:05 Dose: 150 mcg Documented by: GEORGINA Mupirocin (Bactroban Oint 2%) 1 dose NARES BID [facility] Last Admin: 01/11/19 21:25 Dose: 1 dose Documented by: VAL Omeprazole (Prilosec) 20 mg PO ACB [facility] Last Admin: 01/12/19 07:05 Dose: 20 mg Documented by: GEORGINA Oxybutynin Chloride (Ditropan) 5 mg PO TID [facility] Last Admin: 01/11/19 21:26 Dose: 5 mg Documented by: VAL Senna (Senokot) 2 tab PO [facility] Last Admin: 01/11/19 21:25 Dose: 2 tab Documented by: VAL Sodium Chloride (Saline Flush) 10 ml IV Q8 [facility] Last Admin: 01/12/19 06:09 Dose: 10 ml Documented by: Admin: 01/11/19 21:26 Dose: Not Given Documented by: VLA Shift Summary 01/12/19 04:03 Shift Summary by Deborah Khan The patient is alert and oriented times four, up to void with 1 assist and FWW/gaitbelt with BSC during the NOC and steady gait. Voiding quantity sufficient and last PVR was less than 10 ml, she has tolerated a regular diet and PO fluids without nausea. She has NS infusing at 100/hr in her left wrist, she received IV Dilaudid 1 mg immediately post-op and was medicated with Hydrocodone 10/325 mg 2 tabs twice and this managed her pain a tolerable 0-2/10 level. 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 Plan is to discharge to home with her spouse today. Bedside report/update to be given. Initialized on 01/12/19 04:03 - END OF NOTE
--- NOTE | 2019-01-12 08:21 | Operative Note ---
DATE OF OPERATION: 01/11/2019 PREOPERATIVE DIAGNOSIS: Left knee severe osteoarthritis with valgus deformity. POSTOPERATIVE DIAGNOSIS: Left knee severe osteoarthritis with valgus deformity. PROCEDURE PERFORMED: Left robotic-assisted total knee arthroplasty placing a [place] Triathlon size 6 posterior stabilized femoral component, a size 5 tibial baseplate, a 9 mm posterior stabilized tibial insert with a 36 mm patellar button. SURGEON: Froylan Colindres MD ADHESIVE SPRAYER: Pan Lowery PA-C. This provider's expertise and technical skill were required throughout the case. The PA assisted with preoperative coordination, intraoperative retraction, wound closure, dressing and splint application, as well as postoperative documentation and care coordination. ANESTHESIA: Spinal plus general. DRAINS: None. SPECIMENS: Bone cuts, which were discarded. ESTIMATED BLOOD LOSS: Less than 50 mL COMPLICATIONS: None. POSTOPERATIVE CONDITION: Stable. INDICATIONS FOR SURGERY: This is a 63-year-old female who has long history of severe arthritis. Radiographs showed [id number]. She has history of a total shoulder replacement and a total hip replacement done previously by dc with good result. FINDINGS AT SURGERY: She had a significant valgus deformity with very tight lateral compartment. Post-implantation showed satisfactory limb alignment, joint stability, and patellar tracking. PROCEDURE IN DETAIL: The patient had been seen preoperatively. Informed consent had been obtained after discussion of risks and benefits of surgery. Risks including, but not limited to, bleeding, possibly requiring transfusion; infection, possibly requiring implant removal and prolonged IV antibiotics; injury to nerves, blood vessels, and other surrounding structures; anesthetic risks; incomplete or no resolution of symptoms; stiffness; swelling; pain; instability; DVT and pulmonary embolus risks; and the possibility of needing further revision surgery. She understood these risks and wished to proceed. Correct operative site was marked. The patient received spinal anesthesia. She was then taken to the operating room and LMA general given. The left lower extremity was carefully prepped and draped in normal sterile fashion. A timeout was performed verifying patient name, operative site, and plan. Ioban was used to cover all skin surfaces. A standard midline incision was made with scalpel through skin and subcutaneous tissue. IrriSept was irrigated and then a medial parapatellar arthrotomy made. A limited subperiosteal exposure was done of the anterior medial tibia. Due to this being a valgus deformity we did not take this very far around the tibia. We excised retropatellar fat pad as well as anterior horns of the menisci. Femoral and tibial checkpoints were placed. Two stab incisions were made over the femur and two over the tibia and bicortical pins placed and the arrays were connected. Hip center of rotation was checked and then green probe was used to identify the medial and lateral malleolus as well as do double checks of our checkpoints. We then irrigated the joint with IrriSept. The blue probe was then used to do our mapping. Once this was completed, we then removed osteophytes with a rongeur and then checked our flexion, extension gaps. As expected with a valgus deformity knee, she had stretched out medially and was very tight laterally, particularly lateral flexion gap. We did not want to increase her valgus deformity, so we did not make any changes in the tibia. I added 1 degree of valgus in the femur. This gave us a 17 mm gap in flexion medially and in extension laterally. Flexion laterally was about 14 mm and in extension medially was 18 mm. The patellar tracking was good, so we went ahead and used the robotic arm to make the bone cuts. Once the bone cuts were made the tibia was prepared and sized to a 5 and externally rotated as bone coverage would allow. This was pinned into place and then prepared with the CenTraks reamer and keel punch. Keeled tibial trial was placed. As expected, she was quite tight laterally, particularly in flexion, so I then proceeded to release the popliteus as well as pie crust the IT band. This was still tighter than we could fit a 9 insert in so I did pie crust further. We were then able to get the 9 insert trial in; however, upon flexion this would rotate and the femoral condyle laterally would rotate off the poly posteriorly. At this point, we decided to switch them to a posterior stabilized so the box cutting jig was pinned into place on the femur and we used the oscillating saw and chisel to cut the box. We then impacted a posterior stabilized femoral trial and the 9 insert and this then flexed nicely without rotating off the back. We then prepared the patella. This was done freehand technique. She sized to a 36. Holes were drilled and then a trial was placed. We checked our patellar tracking and it was good. At this point, we went ahead and removed all of our trial components. Definitive implants were opened except for the insert. Antibiotic cement was mixed and the joint was filled with IrriSept, after a minute pulse lavaged with saline. CO2 gun was then used to clean and dry the cancellous bone surfaces and then we cemented the tibia followed by the femur. Excess cement was removed. The 9 insert trial was placed and the knee was taken into extension and the patella button was cemented. After we inspected and removed all excess cement we filled the joint with IrriSept. We did remove our checkpoints prior to this. We injected pain cocktail into the subcutaneous and pericapsular tissues and then removed our arrays and then our pins. Once cement had fully hardened, we flexed the knee up. We removed the trial insert. We opened the 9 posterior stabilized insert and injected the remaining pain cocktail into the posteromedial capsule. IrriSept was irrigated onto the tibial tray and then the insert was impacted and verified to be fully seated. We then placed the knee in extension and then irrigated the entire joint with IrriSept, again waiting for a minute. After that time we pulse lavaged copiously with saline. The knee was then flexed to about 45 degrees of flexion. #2 [id number] FiberWires were used around the superior quadrant of the patella, #1 Vicryl [id number] around the inferior quadrant, running #1 Vicryl was used for patellar tendon and quad tendon. Final IrriSept irrigation was done and then after a minute final pulse lavage, and then 2-0 Monocryl was used for subcutaneous and vicente for skin. Xeroform sterile dressings were applied. Tourniquet was released. The patient was then awakened, extubated, and transferred to recovery in stable condition. HARDY:asad Job ID: [id number] Doc ID: [id number] Froylan Colindres MD
[2019-01-12] MEDS: DOCUSATE SODIUM 100 MG CAPSULE PO SCH (08:53)
[2019-01-12] MEDS: OXYBUTYNIN CHLORIDE 5 MG TABLET PO SCH (08:53)
[2019-01-12] MEDS: buPROPion 150 MG TAB.XL.24H PO SCH (08:53)
[2019-01-12] MEDS: MUPIROCIN OINT 2% 22GM NARES SCH (08:54)
[2019-01-12] MEDS ORDERED: DULoxetine 30 MG CAPSULE PO SCH (09:00)
[2019-01-12] MEDS ORDERED: HYDROCHLOROTHIAZIDE 12.5 MG CAPSULE PO SCH (09:00)
[2019-01-12] MEDS ORDERED: CEPHALEXIN 250 MG CAPSULE PO SCH (09:00)
[2019-01-12] MEDS ORDERED: LOSARTAN 50 MG TABLET PO SCH (09:00)
== END 2019-01-12 11:05 | disposition home or self-care (01) | DRG 470 ==
LOC: ICU 09:48 → MEDSUR 17:33
PROVIDERS: ADMIT Orthopaedic Surgery; ATTEND Orthopaedic Surgery

== ENCOUNTER 2019-03-15 08:50 | Inpatient (IN) ==
[2019-03-07 15:01] LABS: Appearance,Urine CLEAR; Bilirubin,Urine NEG (NEG); Color,Urine YELLOW; Culture Indicated,Urine NO; Glucose,Urine (UA) NEGATIVE (NEG); Ketones,Urine NEG (NEG); Leukocyte Esterase,Urine NEG /uL (NEG); Nitrate,Urine NEG (NEG); Protein,Urine NEG (NEG); Specific Gravity,Urine 1.015 (1.000-1.035); Urine Blood NEG mg/dL (<0.03); Urobilinogen,Urine NEG (NEG)
[2019-03-07 16:16] LABS: INR 0.9 (0.9-1.1); Prothrombin Time 11.8 sec (11.9-14.5)
[2019-03-07 16:20] LABS: Basophils # (Auto) 0.05 K/mcL (0.00-0.30); Basophils % (Auto) 0.5 % (0.0-2.0); Eosinophils # (Auto) 0.23 K/mcL (0.00-0.70); Eosinophils % (Auto) 2.4 % (0.0-7.0); Hematocrit 45.5 % (34.1-44.9); Hemoglobin 14.4 g/dL (11.2-15.7); Lymphocytes # (Auto) 3.48 K/mcL (1.50-4.80); Lymphocytes % (Auto) 37.1 % (15.5-49.0); Mean Cell Volume 93.6 fL (80.0-100.0); Mean Corpuscular HGB Conc 31.6 g/dL (31.0-36.0); Monocytes # (Auto) 0.66 K/mcL (0.10-0.90); Platelet Count 288 K/mcL (140-440); RBC 4.86 M/mcL (3.59-5.38); Red Cell Distribution Width 13.7 % (11.5-14.5); WBC 9.4 K/mcL (4.50-11.00)
[2019-03-07 16:20] LABS: Blood Urea Nitrogen 23 mg/dl (8-23); Calcium 9.6 mg/dl (8.6-10.4); Carbon Dioxide 26 mmol/L (22-30); Chloride 102 mmol/L (96-108); Glomerular Filtration Rate 78; Glucose 114 mg/dL (70-105)
[~2019-03-15 08:50] MED LIST changes: -0.9 % SODIUM CHLORIDE 9 ML, KETOROLAC 30 MG, ROPIVACAINE HCL/PF 49.5 ML, EPINEPHrine 0.... IJ SCH; +VANCOMYCIN 1,500 MG in 0.9 % SODIUM CHLORIDE 500 ML IV SCH
[2019-03-15] MEDS ORDERED: PHENYLEPHRINE 10 MG/ML VIAL IV ONE (14:20)
[2019-03-15] MEDS ORDERED: PROPOFOL 200 MG/20 ML VIAL IV ONE (14:20)
[2019-03-15] MEDS ORDERED: ePHEDrine 50 MG/ML AMPUL IV ONE (14:20)
[2019-03-15] MEDS ORDERED: TRANEXAMIC ACID 1,000 MG/10 ML VIAL IV ONE ×2 (14:20→15:57)
[2019-03-15] MEDS ORDERED: DEXAMETHASONE 10 MG/ML VIAL IV ONE (14:20)
[2019-03-15] MEDS ORDERED: LIDOCAINE HCL/PF 100 MG/5 ML SYRINGE IV ONE (14:20)
[2019-03-15] MEDS ORDERED: ONDANSETRON 4 MG/2 ML VIAL IV ONE (14:20)
[2019-03-15] MEDS ORDERED: GLYCOPYRROLATE 0.2 MG/ML VIAL IV ONE (14:20)
[2019-03-15] MEDS ORDERED: KETAMINE 100 MG/ML ML IV ONE (14:20)
[2019-03-15] MEDS ORDERED: FLUMAZENIL 0.1 MG/ML ML IV PRN (15:27)
[2019-03-15] MEDS ORDERED: IPRATROPIUM/ALBUTEROL 3 ML AMPUL.NEB NEB PRN (15:27)
[2019-03-15] MEDS ORDERED: LABETALOL 5 MG/ML ML IV PRN (15:27)
[2019-03-15] MEDS ORDERED: ONDANSETRON 4 MG/2 ML VIAL IV PRN ×2 (15:27→15:57)
[2019-03-15] MEDS ORDERED: fentaNYL 100 MCG/2 ML VIAL IV PRN (15:27)
[2019-03-15] MEDS ORDERED: NALOXONE HCL 0.4 MG/ML VIAL IV PRN (15:27)
[2019-03-15] MEDS ORDERED: METOPROLOL TARTRATE 5 MG/5 ML VIAL IV PRN (15:27)
[2019-03-15] MEDS ORDERED: METHOCARBAMOL 1,000 MG/10 ML VIAL IV PRN (15:27)
[2019-03-15] MEDS ORDERED: ACETAMINOPHEN 1,000 MG/100 ML BOTTLE IV ONE (15:27)
[2019-03-15] MEDS ORDERED: LACTATED RINGERS 250 ML IV PRN (15:27)
[2019-03-15] MEDS ORDERED: LACTATED RINGERS 1,000 ML IV SCH (15:30)
[2019-03-15] MEDS ORDERED: BENZOCAINE/MENTHOL 1 LOZENGE PO PRN (15:57)
[2019-03-15] MEDS ORDERED: POLYETHYLENE GLYCOL 3350 17 GM PACKET PO PRN (15:57)
[2019-03-15] MEDS ORDERED: HYDROmorphone 2 MG/ML VIAL IV PRN (15:57)
[2019-03-15] MEDS ORDERED: BISACODYL 10 MG SUPP.RECT PR PRN (15:57)
[2019-03-15] MEDS ORDERED: FLEETS ADULT ENEMA PR PRN (15:57)
[2019-03-15] MEDS ORDERED: MAGNESIUM HYDROXIDE 30 ML ORAL.SUSP PO PRN (15:57)
--- NOTE | 2019-03-15 15:57 | Brief Operative Note ---
Date of procedure: 03/15/19 Pre-op diagnosis: R hip severe DJD Post-op diagnosis: same Procedure: Right anterior total hip arthroplasty Grafts/Implants: Yes (Depuy Actis 5 Hi offset, +1.5 36 delta head, 56 cup cup, +4 offset altrx ) Anesthesia: spinal, GLMA Findings: arthritis Complications: none Surgeon: Froylan Colindres Manager French: Juan R Lowery Estimated blood loss (cc): 350 Specimens Removed/Pathology: none sent Condition: stable Disposition: PACU
[2019-03-15] MEDS ORDERED: ALBUTEROL SULFATE 1 PUFF INHALER INH PRN (16:01)
--- NOTE | 2019-03-15 16:47 | XRay Report ---
HISTORY: Postop right hip replacement FINDINGS: There is a well-positioned newly inserted right total hip prosthesis. There is no fracture or soft tissue calcification around the joint. There is an indwelling well-positioned left hip prosthesis and there is no reabsorption of bone around the hardware. IMPRESSION: Well-positioned right hip prosthesis Interpreted and Authenticated by: Hunter Zaldivar 03/15/19
--- NOTE | 2019-03-15 16:48 | XRay Report ---
HISTORY: FINDINGS: IMPRESSION: 0.4 minutes of fluoroscopy time was used. Interpreted and Authenticated by: Hunter Zaldivar 03/15/19
[2019-03-15] MEDS: 0.9 % SODIUM CHLORIDE 1,000 ML IV SCH (17:27)
[2019-03-15] MEDS: KETOROLAC 30 MG/ML VIAL IV PRN (17:28)
[2019-03-15] MEDS: DOCUSATE SODIUM 100 MG CAPSULE PO SCH (20:14)
[2019-03-15] MEDS: ASPIRIN 81 MG TAB.CHEW PO SCH (20:15)
[2019-03-15] MEDS: oxyCODONE/APAP 5/325MG TABLET PO PRN (20:15)
[2019-03-15] MEDS: OXYBUTYNIN CHLORIDE 5 MG TABLET PO SCH (20:15)
[2019-03-15] MEDS: 0.9 % SODIUM CHLORIDE 10 ML SYRINGE IV SCH (20:16)
[2019-03-15] MEDS ORDERED: ATORVASTATIN 40 MG TABLET PO SCH (21:00)
[2019-03-15] MEDS ORDERED: SENNOSIDES 1 TABLET PO SCH (21:00)
[2019-03-15] MEDS: ceFAZolin 1 GM VIAL IV SCH (21:51)
[2019-03-16] MEDS: KETOROLAC 30 MG/ML VIAL IV PRN (00:20)
[2019-03-16] MEDS: oxyCODONE/APAP 5/325MG TABLET PO PRN ×3 (02:34→10:13)
[2019-03-16] MEDS: 0.9 % SODIUM CHLORIDE 1,000 ML IV SCH ×2 (03:36→08:25)
[2019-03-16] MEDS: ceFAZolin 1 GM VIAL IV SCH (05:38)
[2019-03-16] MEDS: 0.9 % SODIUM CHLORIDE 10 ML SYRINGE IV SCH (05:39)
--- NOTE | 2019-03-16 07:05 | Discharge Summary ---
Providers - Providers Patient information: Note initiated : 03/16/19 at 7:01 am Service Date, if different from initiated Date: [] Patient: Marija Duncan 63 y/o F admitted on 03/15/19 for Right Total Hip Arthroplasty . Chief Complaint: [] Discharge date: 03/16/19 Hospitalization Hospital Course: Pt was admitted for a R MONSERRAT. Pt underwent the procedure on the day of admission. Pt was then transferred to the floor for IV pain meds, IV abx and PT. Pt will take ASA for DVT prophylaxis. f/u in 2 weeks. Discharge diagnosis: R hip OA Exam - Exam Clean and dry: Yes Weight bearing status: as tolerated Ortho Discharge - MONSERRAT - Patient Instructions Diet: Regular Diet Activity: weight bearing as tolerated Total Hip Protocol: Follow activity instructions as provided by Physical Therapy. Dressing Care: May shower in 2 days - Follow Up Plan Disposition: Home, Self-Care Prognosis: Good Rehab Potential: Good Overall status at discharge: patient is progressing back to baseline - Orders For Discharge Prescriptions: Aspirin 81 mg PO BID #60 tab.chew Transmission Status: Pending to [facility] HYDROcodone/ACETAMINOPHEN [Hydrocodone-Acetamin 10-325 mg] 1 - 2 tab PO Q6 #80 tab Prescription Printed Pending Studies Resuscitation Status Full Code Diet Consistent Carbohydrate Diet Start WedMar 15 1558 Aspirin (Aspirin) 81 mg PO BID [facility] Last Admin: 03/15/19 20:15 Dose: 81 mg Documented by: MARIANN Atorvastatin Calcium (Lipitor) 40 mg PO [facility] Last Admin: 03/15/19 20:14 Dose: 40 mg Documented by: MARIANN Docusate Sodium (Colace) 100 mg PO BID [facility] Last Admin: 03/15/19 20:14 Dose: 100 mg Documented by: MARIANN Hydromorphone HCl (Dilaudid) 0 mg IV Q2HP PRN PRN Reason: PAIN LEVEL > 6 Last Admin: 03/16/19 03:35 Dose: 0.5 mg Documented by: MARIANN Sodium Chloride (Sodium Chloride 0.9%) 1,000 mls @ 125 mls/hr IV .Q8H [facility] Last Admin: 03/16/19 03:36 Dose: 125 mls/hr Documented by: Infusion: 03/16/19 01:27 Dose: 125 mls/hr Documented by: Admin: 03/15/19 17:27 Dose: 125 mls/hr Documented by: [email or web address] Ketorolac Tromethamine (Toradol) 30 mg IV Q6HP PRN PRN Reason: Pain Stop: 03/17/19 16:00 Last Admin: 03/16/19 00:20 Dose: 30 mg Documented by: Admin: 03/15/19 17:28 Dose: 30 mg Documented by: [email or web address] Oxybutynin Chloride (Ditropan) 5 mg PO TID [facility] Last Admin: 03/15/19 20:15 Dose: 5 mg Documented by: MARIANN Oxycodone/Acetaminophen (Percocet 5-325 Mg) 0 tab PO Q4HP PRN PRN Reason: PAIN LEVEL 3-6 Last Admin: 03/16/19 05:38 Dose: 1 tab Documented by: Admin: 03/16/19 02:34 Dose: 1 tab Documented by: Admin: 03/15/19 20:15 Dose: 1 tab Documented by: MARIANN Senna (Senokot) 2 tab PO HS [facility] Last Admin: 03/15/19 20:14 Dose: 2 tab Documented by: MARIANN Sodium Chloride (Saline Flush) 10 ml IV Q8 [facility] Last Admin: 03/16/19 05:39 Dose: Not Given Documented by: Admin: 03/15/19 20:16 Dose: Not Given Documented by: MARIANN Shift Summary 03/16/19 05:08 Shift Summary by Lea Maradiaga Post op day 1 for RTHA. A/O x4. Patient has history of MRSA has been cleared with 2 negative swabs. Percocet X2, Toradol x1, Dilaudid x1 for pain. Swelling on operative leg noted at 0245, patient was having increased pain. Dressing has small shadow drainage marked. Thigh was marked and measured at 74 cm, measure with CMS checks. Up with 1 FWW and GB to bathroom. Voiding in bathroom. Last BM 03/14. Pulse has been in 50's-60's. Hx of sleep apnea, required 1-2 L of 02 while sleeping. IV in LFA NS @125. Abrasions to bilateral shins from before admit. Bedside report to follow. Initialized on 03/16/19 05:08 - END OF NOTE
[2019-03-16] MEDS: DOCUSATE SODIUM 100 MG CAPSULE PO SCH (07:26)
[2019-03-16] MEDS: ASPIRIN 81 MG TAB.CHEW PO SCH (07:26)
[2019-03-16] MEDS: OXYBUTYNIN CHLORIDE 5 MG TABLET PO SCH (07:26)
[2019-03-16] MEDS ORDERED: OMEPRAZOLE 20 MG CAPSULE PO SCH (07:30)
[2019-03-16] MEDS ORDERED: LEVOTHYROXINE 150 MCG TABLET PO SCH (07:30)
--- NOTE | 2019-03-16 08:30 | Operative Note ---
DATE OF OPERATION: 03/15/2019 PREOPERATIVE DIAGNOSIS: Right hip severe osteoarthritis. POSTOPERATIVE DIAGNOSIS: Right hip severe osteoarthritis. PROCEDURE PERFORMED: Right anterior total hip arthroplasty placing a 56 [place] cup with a +4 lateralized AltrX liner; a size 5 high offset Actis femoral stem with a +1.5, 36 mm delta ceramic head ball. SURGEON: Froylan Colindres M.D. ELECTROPHYSIOLOGY TECH: Pan Lowery PA-C. The PA's assistance was required for the safe and efficient completion of the entire case. This provider's expertise and technical skill were required throughout the case. The PA assisted with preoperative coordination, intraoperative retraction, wound closure, dressing and splint application, as well as postoperative documentation and care coordination. ANESTHESIA: Spinal plus general. DRAINS: None. SPECIMENS: Femoral head which was discarded. COMPLICATIONS: None. BLOOD LOSS: 350 mL. POSTOPERATIVE CONDITION: Stable. INDICATIONS FOR SURGERY: This is a 63-year-old female with progressive worsening severe right hip pain. Radiographs showed [id number]-[id number] osteoarthritis. She had a previous left total hip arthroplasty by me which she was pleased with. FINDINGS AT SURGERY: Large joint effusion, severe krpn-fa-[id number] hip arthritis. Post implantation showed good component position and leg length and offset yazidi. PROCEDURE IN DETAIL: The patient had been seen preoperatively. Informed consent obtained after discussion of risks and benefits of surgery. Risks including, but not limited to, bleeding; infection; injury to nerves, blood vessels, and other surrounding structures; anesthetic risks; incomplete or no resolution of symptoms; leg length discrepancy; dislocation; fracture; DVT and pulmonary embolus risks; and the possibility of needing further revision joint surgery. The patient understood these risks and wished to proceed. Correct operative site was marked and then spinal anesthesia given. The patient was then taken to the operating room and LMA general given. The patient was carefully transferred to the fracture table and then the operative hip was carefully prepped and draped in normal sterile fashion. Timeout was performed verifying patient name, operative site, and plan. Ioban was used to cover all skin surfaces. A standard anterior approach incision was made with a scalpel through skin and subcutaneous tissue. Hemostasis was obtained with Bovie cautery. Careful blunt dissection was taken down on the tensor fascia and then this was undermined circumferentially. IrriSept was irrigated and a ring retractor placed. Tensor fascia was incised in line with muscle fibers and then careful blunt dissection taken medial to the muscle belly. Blunt cobra retractors were placed on the superior and inferior femoral neck and then circumflex vessels were coagulated and cut and vastus fascia split distally. Anterior capsulectomy was performed and then the capsule releases. Corkscrew was placed in the femoral head. Prior to placement of the corkscrew we did take x-rays for joint point. Once a corkscrew was placed we used fluoroscopy to identify our approximate neck cut trajectory and then our femoral neck was cut with oscillating tip saw. Femoral head was removed and the acetabulum exposed. Labrum was excised circumferentially as well as soft tissue from the floor. We then irrigated with IrriSept. We then began sequentially reaming until 1 mm smaller than the final implant. We then opened the acetabular component. IrriSept was irrigated, after a minute pulse lavaged with saline and then the cup was impacted using the [id number]. Joint point was used to verify satisfactory cup position. A center hole cover was placed and then the acetabular liner was carefully aligned and impacted and carefully verified to be fully seated. We then released traction. The leg was externally rotated and released capsule around the medial neck. The leg was then extended and adducted. Capsule was released out towards greater trochanter and then the proximal femur was exposed. Box osteotome was used to gain canal entry and an awl was used to identify canal trajectory. Rongeur and rasp were used to lateralize and then we began sequentially broaching up to the final size. We calcar planed down onto the broach and then the neck trial and head ball were placed. The hip was reduced. Fluoro was brought in and x-rays taken, joint point was used to verify satisfactory position. We then re-dislocated and removed the trial implants. Definitive implants were opened. We then irrigated the femoral canal with IrriSept again, after a minute pulse lavaged with saline. The final stem was impacted and seated. We then opened the head ball. The stem was carefully cleaned and dried and the head ball was impacted. We then reduced the hip with satisfactory tension. Final fluoro images were taken and saved. We irrigated the joint with IrriSept, after a minute pulse lavaged with saline again and then closed the tensor fascia with two running #1 Vicryls, one running proximal, one running distal and a ring retractor was removed. Final IrriSept irrigation was done, after a minute final pulse lavage, and then fat was tacked to fascia with Vicryl and then 2-0 Monocryl for subcutaneous and vicente for skin. Xeroform and sterile dressing were applied. The patient was then awakened, extubated, and transferred to recovery in stable condition. BJB:radha Job ID: [id number] Doc ID: [id number] Froylan Colindres MD
[2019-03-16] MEDS ORDERED: HYDROCHLOROTHIAZIDE 25 MG TABLET PO SCH (09:00)
[2019-03-16] MEDS ORDERED: LOSARTAN/HCTZ 100/25 TABLET PO SCH (09:00)
[2019-03-16] MEDS ORDERED: buPROPion 150 MG TAB.XL.24H PO SCH (09:00)
[2019-03-16] MEDS ORDERED: CEPHALEXIN 250 MG CAPSULE PO SCH (09:00)
[2019-03-16] MEDS ORDERED: CELECOXIB 200 MG CAPSULE PO SCH (09:00)
[2019-03-16] MEDS ORDERED: DULoxetine 30 MG CAPSULE PO SCH (09:00)
[2019-03-16] MEDS ORDERED: LOSARTAN 50 MG TABLET PO SCH (09:00)
[2019-03-16] MEDS ORDERED: oxyCODONE/APAP 5/325MG TABLET PO ONE (10:26)
== END 2019-03-16 10:27 | disposition home or self-care (01) | DRG 470 ==
LOC: MEDSUR 08:50
PROVIDERS: ADMIT Orthopaedic Surgery; ATTEND Orthopaedic Surgery

== ENCOUNTER 2019-06-14 04:48 | Inpatient (IN) ==
[2019-06-14] MEDS ORDERED: SCOPOLAMINE 1 PATCH PATCH TOPICAL PRN (05:00)
[2019-06-14] MEDS ORDERED: IPRATROPIUM/ALBUTEROL 3 ML AMPUL.NEB NEB PRN ×2 (05:00→10:02)
[2019-06-14] MEDS ORDERED: oxyCODONE 10 MG TAB.ER.12H PO SCH (06:00)
[2019-06-14] MEDS ORDERED: ceFAZolin 2 GM in DEXTROSE 5% IN WATER 50 ML IV SCH (06:00)
[2019-06-14] MEDS ORDERED: CELECOXIB 200 MG CAPSULE PO SCH (06:00)
[2019-06-14] MEDS ORDERED: PREGABALIN 75 MG CAPSULE PO SCH (06:00)
[2019-06-14] MEDS ORDERED: VANCOMYCIN 1,500 MG in 0.9 % SODIUM CHLORIDE 500 ML IV SCH (06:00)
[2019-06-14 06:01] LABS: Appearance,Urine CLEAR; Bilirubin,Urine NEG (NEG); Color,Urine YELLOW; Culture Indicated,Urine NO; Glucose,Urine (UA) NEGATIVE (NEG); Ketones,Urine NEG (NEG); Leukocyte Esterase,Urine NEG /uL (NEG); Nitrate,Urine NEG (NEG); Protein,Urine NEG (NEG); Specific Gravity,Urine 1.014 (1.000-1.035); Urine Blood NEG mg/dL (<0.03); Urobilinogen,Urine NEG (NEG)
[2019-06-14 06:13] LABS: Estimated Average Glucose(eAG) 114 mg/dL; Hemoglobin A1C 5.6 % HGB (4.0-6.0)
[2019-06-14 06:16] LABS: ALT/SGPT 16 U/l (0-40); AST/SGOT 21 U/l (0-37); Albumin/Globulin Ratio 1.5 (1.0-2.3); Alkaline Phosphatase 65 U/L (39-117); Bilirubin,Total 0.2 mg/dL (0.0-1.0); Blood Urea Nitrogen 17 mg/dl (8-23); Calcium 9.3 mg/dl (8.6-10.4); Carbon Dioxide 27 mmol/L (22-30); Chloride 102 mmol/L (96-108); Globulin 2.6 gm/dL (2.2-3.7); Glomerular Filtration Rate 96; Glucose 103 mg/dL (70-105)
[2019-06-14 07:03] LABS: Basophils # (Auto) 0.04 K/mcL (0.00-0.30); Basophils % (Auto) 0.6 % (0.0-2.0); Eosinophils # (Auto) 0.18 K/mcL (0.00-0.70); Eosinophils % (Auto) 2.6 % (0.0-7.0); Granulocytes % (Auto) 55.7 % (38.0-78.0); Hemoglobin 13.5 g/dL (11.2-15.7); Lymphocytes % (Auto) 32.8 % (15.5-49.0); Mean Cell Volume 92.1 fL (80.0-100.0); Mean Corpuscular HGB Conc 32.1 g/dL (31.0-36.0); Mean Platelet Volume 10.4 fL (7.4-10.4); Monocytes # (Auto) 0.56 K/mcL (0.10-0.90); Platelet Count 258 K/mcL (140-440); RBC 4.56 M/mcL (3.59-5.38); Red Cell Distribution Width 14.4 % (11.5-14.5)
[2019-06-14] MEDS ORDERED: GLYCOPYRROLATE 0.2 MG/ML VIAL IV ONE (07:40)
[2019-06-14] MEDS ORDERED: TRANEXAMIC ACID 1,000 MG/10 ML VIAL IV ONE ×2 (07:40→09:29)
[2019-06-14] MEDS ORDERED: SUCCINYLCHOLINE 20 MG/ML ML IV ONE (07:40)
[2019-06-14] MEDS ORDERED: LIDOCAINE HCL/PF 100 MG/5 ML SYRINGE IV ONE (07:40)
[2019-06-14] MEDS ORDERED: PROPOFOL 200 MG/20 ML VIAL IV ONE (07:40)
[2019-06-14] MEDS ORDERED: PHENYLEPHRINE 10 MG/ML VIAL IV ONE (07:40)
[2019-06-14] MEDS ORDERED: DEXAMETHASONE 10 MG/ML VIAL IV ONE (07:40)
[2019-06-14] MEDS ORDERED: ONDANSETRON 4 MG/2 ML VIAL IV ONE (07:40)
[2019-06-14] MEDS ORDERED: KETAMINE 100 MG/ML ML IV ONE (07:40)
[2019-06-14] MEDS ORDERED: ePHEDrine 50 MG/ML AMPUL IV ONE (07:40)
--- NOTE | 2019-06-14 09:28 | Brief Operative Note ---
Date of procedure: 06/14/19 Pre-op diagnosis: Recurrent dislocation s/p R total hip arthroplasty Post-op diagnosis: same Procedure: Revision of Right total hip arthroplasty, femoral and acetabular components Grafts/Implants: Yes (40mm +12 delta head, 40mm +4 lat 10 deg face changing liner) Anesthesia: spinal, GLMA Findings: unstable hip, stable post revision Complications: none Surgeon: Froylan Colindres Receptionist Airline Lounge: Juan R Lowery Estimated blood loss (cc): 650 Specimens Removed/Pathology: other (acetabular liner removed, femoral head removed) Condition: stable Disposition: PACU
[2019-06-14] MEDS ORDERED: POLYETHYLENE GLYCOL 3350 17 GM PACKET PO PRN (09:29)
[2019-06-14] MEDS ORDERED: BENZOCAINE/MENTHOL 1 LOZENGE PO PRN (09:29)
[2019-06-14] MEDS ORDERED: MAGNESIUM HYDROXIDE 30 ML ORAL.SUSP PO PRN (09:29)
[2019-06-14] MEDS ORDERED: ONDANSETRON 4 MG/2 ML VIAL IV PRN ×2 (09:29→10:02)
[2019-06-14] MEDS ORDERED: BISACODYL 10 MG SUPP.RECT PR PRN (09:29)
[2019-06-14] MEDS ORDERED: FLEETS ADULT ENEMA PR PRN (09:29)
[2019-06-14] MEDS ORDERED: ALBUTEROL SULFATE 200 PUFF INHALER INH PRN (09:40)
[2019-06-14] MEDS ORDERED: ACETAMINOPHEN 1,000 MG/100 ML BOTTLE IV ONE (10:02)
[2019-06-14] MEDS ORDERED: METOPROLOL TARTRATE 5 MG/5 ML VIAL IV PRN (10:02)
[2019-06-14] MEDS ORDERED: FLUMAZENIL 0.1 MG/ML ML IV PRN (10:02)
[2019-06-14] MEDS ORDERED: ePHEDrine 50 MG/ML AMPUL IV PRN (10:02)
[2019-06-14] MEDS ORDERED: MEPERIDINE 25 MG/ML SYRINGE IV PRN (10:02)
[2019-06-14] MEDS ORDERED: diphenhydrAMINE 50 MG/ML VIAL IV PRN (10:02)
[2019-06-14] MEDS ORDERED: ATROPINE SULFATE 0.4 MG/ML VIAL IV PRN (10:02)
[2019-06-14] MEDS ORDERED: HYDROmorphone 2 MG/ML VIAL IV PRN (10:02)
[2019-06-14] MEDS ORDERED: METHOCARBAMOL 1,000 MG/10 ML VIAL IV PRN (10:02)
[2019-06-14] MEDS ORDERED: LACTATED RINGERS 1,000 ML IV SCH (10:15)
[2019-06-14] MEDS: fentaNYL 100 MCG/2 ML VIAL IV PRN ×2 (10:23→10:29)
--- NOTE | 2019-06-14 10:25 | XRay Report ---
CLINICAL INFORMATION: RIGHT ANTERIOR HIP rotation COMPARISON: None. FINDINGS: Digital images from the OR show placement of right total hip prostheses, a anterior approach. Final film shows anatomic alignment without osseous abnormality. IMPRESSION: Right total hip prostheses revision - anatomic alignment Interpreted and Authenticated by: Sincere Reyes 06/14/19
[2019-06-14] MEDS: 0.9 % SODIUM CHLORIDE 1,000 ML IV SCH ×4 (10:49→23:27)
--- NOTE | 2019-06-14 10:53 | XRay Report ---
CLINICAL INFORMATION: Post-op right total hip revision COMPARISON: 2019 FINDINGS: Right total hip prostheses is anatomically aligned no osseous abnormality. Older left hip prosthesis also in near-anatomic alignment. No evidence of loosening or infection. IMPRESSION: Negative Interpreted and Authenticated by: Sincere Reyes 06/14/19
--- NOTE | 2019-06-14 10:56 | Operative Note ---
DATE OF OPERATION: 06/14/2019 PREOPERATIVE DIAGNOSIS: Right hip recurrent instability, status post total hip arthroplasty. POSTOPERATIVE DIAGNOSIS: Right hip recurrent instability, status post total hip arthroplasty. PROCEDURE PERFORMED: Revision of right total hip arthroplasty of both femoral and acetabular components. SURGEON: Froylan Colindres M.D. IRONWORKER: Pan Lowery PA-C. The PA's assistance was required for the safe and efficient completion of the entire case. This provider's expertise and technical skill were required throughout the case. The PA assisted with preoperative coordination, intraoperative retraction, wound closure, dressing and splint application, as well as postoperative documentation and care coordination. ANESTHESIA: Spinal plus general. DRAINS: None. SPECIMENS: Removed femoral head and acetabular liner. COMPLICATIONS: None. POSTOPERATIVE CONDITION: Stable. INDICATIONS FOR SURGERY: This is a 64-year-old female who had a total hip arthroplasty done approximately 3 months ago. Sometime around 6 weeks postop, she dislocated the hip. She had closed reduction and then subsequently over the last few weeks dislocated two more times. FINDINGS AT SURGERY: She did have relatively easily dislocated hip. Post implantation showed a stable hip. PROCEDURE IN DETAIL: The patient had been seen preoperatively. Informed consent had been obtained after discussion of risks and benefits of surgery. Risks including, but not limited to, bleeding, possibly requiring transfusion; infection, possibly requiring implant removal and prolonged IV antibiotics; injury to nerves, blood vessels, other surrounding structures; anesthetic risks; continued dislocation; fracture; DVT and pulmonary embolus risks; and the possibility of needing further revision surgery. She understood and wished to proceed. Correct operative site was marked and then patient received spinal anesthesia. She was then taken to the operating room and LMA general given. She was carefully positioned on the [place] table, and the right hip and groin were then carefully prepped and draped in normal sterile fashion. A timeout was performed verifying patient name, operative site, and plan. Ioban drape was used to cover all skin surfaces and then her previous scar was used with a scalpel through skin and subcutaneous tissue. Hemostasis was obtained with Bovie cautery. We continued with Bovie until we were down onto the tensor fascia and then undermined this circumferentially. Irrisept was irrigated and then a ring retractor was placed. Tensor fascia was incised in line with the muscle fibers and then we dissected medial to the muscle belly. We were then able to expose the joint. I released some scar tissue around the joint and then we pulled traction on the leg. It easily distracted. We then used a drift punch to dislodge the head and then externally rotated and dislocated the hip. Traction was removed. The leg was externally rotated and extended down. We were able to remove the head ball. We then brought the leg back up and exposed the acetabulum. We used the extractor device to remove the polyethylene. I then removed the center hole cover and trialed a +4, 10-degree face-changing 40 mm liner with the lip anterior superior. I then re-exposed the femoral stem with external rotation, extension and adduction. We placed a +8.5 head ball and reduced. There was some tension. However, the head ball was able to be knocked off the stem fairly easily, so I redislocated. I removed the trial implants. We went ahead and opened a +4 lateralized, 10-degree face-changing liner. We replaced our center hole cover. We irrigated the joint with IrriSept. After a minute, we pulse lavaged with saline. The liner was then carefully aligned with the tabs with the face-changing liner at about the 2 o'clock position. We impacted with the mallet and then carefully checked that all tabs were flush. We then re-exposed the proximal femur and trialed a +12. This reduced with better tension. It did reveal limb lengthening, but we felt that stability was more important, so we went ahead and redislocated. We opened a 40 mm, +12 head ball. The stem was exposed, carefully cleaned and dried, and then head ball was briskly impacted. We then reduced the hip and final fluoro images were taken. We irrigated with IrriSept. After a minute we pulse lavaged copiously with saline. The tensor fascia was then closed with two #1 Vicryl running stitches. The ring retractor was removed and more IrriSept was irrigated, after a minute more pulse lavage, and then a #1 Vicryl was used to tack fat to fascia and then 2-0 Monocryl was used for subcutaneous and vicente for skin. Xeroform and sterile dressing were applied. The patient was then awakened, extubated, and transferred to recovery in stable condition. HARDY:radha Job ID: [id number] Doc ID: [id number] Froylan Colindres MD
[2019-06-14] MEDS: HYDROCODONE/APAP 7.5/325MG TABLET PO PRN ×5 (13:01→23:53)
[2019-06-14] MEDS: 0.9 % SODIUM CHLORIDE 10 ML SYRINGE IV SCH ×2 (15:18→20:32)
[2019-06-14] MEDS: OXYBUTYNIN CHLORIDE 5 MG TABLET PO SCH ×2 (15:24→20:31)
[2019-06-14] MEDS: ceFAZolin 1 GM VIAL IV SCH ×2 (15:24→23:25)
[2019-06-14] MEDS: DOCUSATE SODIUM 100 MG CAPSULE PO SCH (20:30)
[2019-06-14] MEDS: ASPIRIN 81 MG TAB.CHEW PO SCH (20:31)
[2019-06-14] MEDS ORDERED: ATORVASTATIN 40 MG TABLET PO SCH (21:00)
[2019-06-14] MEDS ORDERED: DOCUSATE SODIUM 100 MG CAPSULE PO SCH (21:00)
[2019-06-14] MEDS ORDERED: SENNOSIDES 1 TABLET PO SCH (21:00)
[2019-06-15] MEDS: 0.9 % SODIUM CHLORIDE 1,000 ML IV SCH ×2 (00:30→09:31)
[2019-06-15] MEDS: HYDROCODONE/APAP 7.5/325MG TABLET PO PRN ×4 (02:19→11:01)
[2019-06-15] MEDS: 0.9 % SODIUM CHLORIDE 10 ML SYRINGE IV SCH (05:17)
--- NOTE | 2019-06-15 07:06 | Discharge Summary ---
Providers - Providers Patient information: Note initiated : 06/15/19 at 7:04 am Service Date, if different from initiated Date: [] Patient: Marija Duncan 64 y/o F admitted on 06/14/19 for Right Total Hip Arthroplasty Revision. Chief Complaint: [] Discharge date: 06/15/19 Hospitalization Hospital Course: Pt was admitted for a R direct anterior total hip arthroplasty revision consisting of liner and head exchange. Pt had become a chronic dislocateder approx 2-3 months s/p MONSERRAT. Pt was admitted on the day of admission. Pt spent one night on the floor for IV pain meds, IV abx and PT. Pt was discharged to home. Will take ASA for DVT prophylaxis. Discharge diagnosis: R hip chronic dislocation MONSERRAT Exam - Exam Clean and dry: Yes Weight bearing status: as tolerated Ortho Discharge - MONSERRAT - Patient Instructions Diet: Regular Diet Activity: activity as tolerated Total Hip Protocol: Follow activity instructions as provided by Physical Therapy. Dressing Care: May shower in 2 days - Follow Up Plan Disposition: Home, Self-Care Prognosis: Good Rehab Potential: Good Overall status at discharge: patient is back to baseline - Orders For Discharge Prescriptions: Aspirin 81 mg PO BID #60 tab.chew Transmission Status: Pending to [facility] Hydrocodone/APAP 7.5/325Mg [Irwin 7.5-325Mg] 1 - 2 tab PO Q4HP PRN #50 tab PRN Reason: Pain Level 3-6 Prescription Printed Pending Studies Resuscitation Status Full Code Diet Regular Diet Start WedJun 13 0937 Hydrocodone Bitart/Acetaminophen (Irwin 7.5/325mg) 0 tab PO Q4HP PRN PRN Reason: PAIN LEVEL 3-6 Last Admin: 06/15/19 05:17 Dose: 1 tab Documented by: Admin: 06/15/19 02:19 Dose: 1 tab Documented by: Admin: 06/14/19 23:53 Dose: 1 tab Documented by: Admin: 06/14/19 21:41 Dose: 1 tab Documented by: Admin: 06/14/19 18:42 Dose: 1 tab Documented by: Admin: 06/14/19 16:08 Dose: 1 tab Documented by: Admin: 06/14/19 13:01 Dose: 1 tab Documented by: LILY Aspirin (Aspirin) 81 mg PO BID [facility] Last Admin: 06/14/19 20:31 Dose: 81 mg Documented by: DANELLE Atorvastatin Calcium (Lipitor) 40 mg PO HS [facility] Last Admin: 06/14/19 20:31 Dose: 40 mg Documented by: DANELLE Docusate Sodium (Colace) 100 mg PO BID [facility] Last Admin: 06/14/19 20:30 Dose: 100 mg Documented by: DANELLE Sodium Chloride (Sodium Chloride 0.9%) 1,000 mls @ 125 mls/hr IV .Q8H [facility] Last Admin: 06/15/19 00:30 Dose: Not Given Documented by: Admin: 06/14/19 23:27 Dose: 125 mls/hr Documented by: Infusion: 06/14/19 23:24 Dose: 125 mls/hr Documented by: Admin: 06/14/19 17:48 Dose: Not Given Documented by: Admin: 06/14/19 15:24 Dose: 125 mls/hr Documented by: Infusion: 06/14/19 15:24 Dose: 125 mls/hr Documented by: Admin: 06/14/19 10:49 Dose: 125 mls/hr Documented by: LILY Levothyroxine Sodium (Synthroid) 150 mcg PO ACB [facility] Last Admin: 06/15/19 07:02 Dose: 150 mcg Documented by: GEORGINA Omeprazole (Prilosec) 20 mg PO ACB [facility] Last Admin: 06/15/19 07:02 Dose: 20 mg Documented by: GEORGINA Oxybutynin Chloride (Ditropan) 5 mg PO TID [facility] Last Admin: 06/14/19 20:31 Dose: 5 mg Documented by: Admin: 06/14/19 15:24 Dose: 5 mg Documented by: LILY Senna (Senokot) 2 tab PO [facility] Last Admin: 06/14/19 20:31 Dose: 2 tab Documented by: DANELLE Sodium Chloride (Saline Flush) 10 ml IV Q8 [facility] Last Admin: 06/15/19 05:17 Dose: Not Given Documented by: Admin: 06/14/19 20:32 Dose: Not Given Documented by: Admin: 06/14/19 15:18 Dose: Not Given Documented by: LILY Shift Summary 06/15/19 05:02 Shift Summary by Zander Elizalde Pt has rested well tonight. She is up to the BSC to void - TX's stable w/ SBA. PVR's after voiding were 382ml @ 2020, & 210ml @ 2140. RT hip dressing showing a sm area of shadow - marked. Pt's pain has been well controlled w/ Irwin 7.5 (1) PO Q 2hr - last dose given @ 0220. No nausea or other concerns. NS infusing to her LT F/A @ 125ml/hr. VS - B/P running slightly low - all else WNL on R.A.. She is A&) x4, calm, pleasant, & cooperative. Initialized on 06/15/19 05:02 - END OF NOTE
[2019-06-15] MEDS ORDERED: LEVOTHYROXINE 150 MCG TABLET PO SCH (07:30)
[2019-06-15] MEDS ORDERED: OMEPRAZOLE 20 MG CAPSULE PO SCH (07:30)
[2019-06-15] MEDS: DOCUSATE SODIUM 100 MG CAPSULE PO SCH (08:51)
[2019-06-15] MEDS: ASPIRIN 81 MG TAB.CHEW PO SCH (08:51)
[2019-06-15] MEDS: OXYBUTYNIN CHLORIDE 5 MG TABLET PO SCH (08:52)
[2019-06-15] MEDS ORDERED: buPROPion 150 MG TAB.XL.24H PO SCH (09:00)
[2019-06-15] MEDS ORDERED: CELECOXIB 200 MG CAPSULE PO SCH (09:00)
[2019-06-15] MEDS ORDERED: DULoxetine 30 MG CAPSULE PO SCH (09:00)
[2019-06-15] MEDS ORDERED: CEPHALEXIN 250 MG CAPSULE PO SCH (09:00)
[2019-06-15] MEDS ORDERED: HYDROCHLOROTHIAZIDE 25 MG TABLET PO SCH (09:00)
[2019-06-15] MEDS ORDERED: LOSARTAN/HCTZ 100/25 TABLET PO SCH (09:00)
[2019-06-15] MEDS ORDERED: LOSARTAN 50 MG TABLET PO SCH (09:00)
== END 2019-06-15 11:15 | disposition home or self-care (01) | DRG 468 ==
LOC: MEDSUR 04:48 → EDSTATUS 07:30
PROVIDERS: ADMIT Orthopaedic Surgery; ATTEND Orthopaedic Surgery

== ENCOUNTER 2024-07-05 05:38 | Inpatient (IN) ==
[2024-06-29 15:07] LABS: Basophils # (Auto) 0.03 K/mcL (0.00-0.30); Basophils % (Auto) 0.3 % (0.0-2.0); Eosinophils # (Auto) 0.29 K/mcL (0.00-0.70); Eosinophils % (Auto) 2.9 % (0.0-7.0); Hematocrit 42.6 % (34.1-44.9); Hemoglobin 13.9 g/dL (11.2-15.7); Lymphocytes # (Auto) 3.38 K/mcL (1.50-4.80); Lymphocytes % (Auto) 33.6 % (15.5-49.0); Mean Cell Volume 91.2 fL (80.0-100.0); Mean Corpuscular HGB Conc 32.6 g/dL (31.0-36.0); Mean Platelet Volume 10.5 fL (8.8-12.5); Monocytes # (Auto) 0.89 K/mcL (0.10-0.90); Monocytes % (Auto) 8.8 % (1.0-12.0); Neutrophils % (Auto) 54.1 % (38.0-78.0); Platelet Count 250 K/mcL (140-440); RBC 4.67 M/mcL (3.59-5.38); Red Cell Distribution Width 14.6 % (11.5-14.5); WBC 10.1 K/mcL (4.5-11.0)
[2024-06-29 15:32] LABS: ALT/SGPT 20 U/L (<40); AST/SGOT 26 U/L (<32); Albumin 3.9 gm/dL (3.2-5.2); Albumin/Globulin Ratio 1.6 (1.0-2.3); Alkaline Phosphatase 75 U/L (39-117); Bilirubin,Total 0.2 mg/dL (0.1-1.0); Blood Urea Nitrogen 19 mg/dL (8-23); Calcium 9.5 mg/dL (8.6-10.4); Carbon Dioxide 26 mmol/L (22-30); Chloride 103 mmol/L (96-108); Globulin 2.5 gm/dL (2.2-3.7); Glomerular Filtration Rate 88; Glucose 96 mg/dL (70-105); Potassium 3.7 mmol/L (3.3-5.1); Sodium 141 mmol/L (133-145)
[2024-06-29 19:23] LABS: Appearance,Urine CLEAR (Clear); Bilirubin,Urine Negative (Negative); Color,Urine YELLOW; Glucose,Urine (UA) Negative (Negative); Ketones,Urine Negative (Negative); Leukocyte Esterase,Urine Negative /uL (Negative); Nitrate,Urine Negative (Negative); Protein,Urine Negative (Negative); Specific Gravity,Urine 1.017 (1.000-1.035); Urine Blood Negative (Negative); Urobilinogen,Urine Negative
[2024-06-29 19:47] LABS: Estimated Average Glucose(eAG) 131 mg/dL; Hemoglobin A1C 6.2 % Hgb (4.0-6.0)
[2024-07-05] MEDS: CELECOXIB 200 MG CAPSULE PO SCH (06:09)
[2024-07-05] MEDS: oxyCODONE 10 MG TAB.ER.12H PO SCH (06:09)
[2024-07-05] MEDS: PREGABALIN 75 MG CAPSULE PO SCH (06:09)
[2024-07-05] MEDS ORDERED: LIDOCAINE 2% PF 5 ML VIAL ONE (06:57)
[2024-07-05] MEDS ORDERED: ROPIVACAINE HCL/PF 30 ML VIAL IJ ONE (06:57)
[2024-07-05] MEDS ORDERED: TRANEXAMIC ACID 1,000 MG/10 ML VIAL ONE (06:57)
[2024-07-05] MEDS ORDERED: ROCURONIUM 10 MG/ML ML IV ONE (06:57)
[2024-07-05] MEDS ORDERED: DEXAMETHASONE 10 MG/ML VIAL ONE (06:57)
[2024-07-05] MEDS ORDERED: ONDANSETRON 4 MG/2 ML VIAL ONE (06:57)
[2024-07-05] MEDS ORDERED: KETAMINE 50 MG/ML ML ONE (06:59)
[2024-07-05] MEDS ORDERED: PROPOFOL 200 MG/20 ML VIAL IV ONE (06:59)
[2024-07-05] MEDS ORDERED: MAGNESIUM SULFATE 2 GM/50 ML BAG IV ONE (07:07)
[2024-07-05] MEDS: ceFAZolin 2 GM in DEXTROSE 5% IN WATER 50 ML IV SCH (07:09)
[2024-07-05] MEDS ORDERED: GLYCOPYRROLATE 0.2 MG/ML VIAL IV ONE ×3 (07:39→09:29)
[2024-07-05] MEDS ORDERED: PHENYLephrine 1 MG/10 ML SYRINGE (ANEST) ONE ×2 (08:38→09:06)
[2024-07-05] MEDS ORDERED: ePHEDrine 50 MG/5 ML SYRINGE (ANEST) IV ONE ×2 (08:38→09:26)
[2024-07-05] MEDS ORDERED: SUGAMMADEX SODIUM 200 MG/2 ML VIAL IV ONE (08:48)
[2024-07-05] MEDS ORDERED: IPRATROPIUM/ALBUTEROL 3 ML AMPUL.NEB NEB PRN (09:11)
[2024-07-05] MEDS ORDERED: fentaNYL 100 MCG/2 ML VIAL IV PRN (09:11)
[2024-07-05] MEDS ORDERED: BISACODYL 10 MG SUPP.RECT PR PRN (09:17)
[2024-07-05] MEDS ORDERED: MAGNESIUM HYDROXIDE 30 ML ORAL.SUSP PO PRN (09:17)
[2024-07-05] MEDS ORDERED: FLEETS ADULT 1 DOSE ENEMA PR PRN (09:17)
[2024-07-05] MEDS ORDERED: BENZOCAINE/MENTHOL 1 LOZENGE PO PRN (09:17)
[2024-07-05] MEDS ORDERED: ONDANSETRON 4 MG/2 ML VIAL IV PRN (09:17)
[2024-07-05] MEDS ORDERED: PATIENTS OWN MEDICATION 1 DOSE MISCELL INH PRN (09:32)
[2024-07-05] MEDS: TRANEXAMIC ACID 1,000 MG/10 ML VIAL IV ONE (09:56)
[2024-07-05] MEDS: 0.9 % SODIUM CHLORIDE 10 ML SYRINGE IV SCH (11:58)
[2024-07-05] MEDS: ceFAZolin 1 GM VIAL IV SCH (11:58)
[2024-07-05] MEDS: 0.9 % SODIUM CHLORIDE 1,000 ML IV SCH (11:58)
[2024-07-05] MEDS: HYDROCODONE/APAP 7.5/325MG TABLET PO PRN (17:30)
[2024-07-05] MEDS: ATORVASTATIN 40 MG TABLET PO SCH (20:28)
[2024-07-05] MEDS: SENNOSIDES 1 TABLET PO SCH (20:28)
[2024-07-05] MEDS: DOCUSATE SODIUM 100 MG CAPSULE PO SCH (20:28)
[2024-07-05] MEDS ORDERED: DOCUSATE SODIUM 100 MG CAPSULE PO SCH (21:00)
[2024-07-06] MEDS: morphine 4 MG/ML VIAL IV PRN (05:28)
[2024-07-06] MEDS: LEVOTHYROXINE 150 MCG TABLET PO SCH (07:36)
[2024-07-06] MEDS: POLYETHYLENE GLYCOL 3350 17 GM PACKET PO PRN (07:36)
[2024-07-06] MEDS: OMEPRAZOLE 20 MG CAPSULE PO SCH (07:36)
[2024-07-06] MEDS: LOSARTAN 50 MG TABLET PO SCH (08:11)
[2024-07-06] MEDS: HYDROCHLOROTHIAZIDE 25 MG TABLET PO SCH (08:11)
[2024-07-06] MEDS: FAMOTIDINE 20 MG TABLET PO SCH (08:11)
[2024-07-06] MEDS: DULoxetine 30 MG CAPSULE PO SCH (08:11)
[2024-07-06] MEDS: KETOROLAC 15 MG/ML VIAL IV PRN (10:03)
[2024-07-06 10:23] VITALS: TEMP 98; O2SAT 93
== END 2024-07-06 10:55 | disposition home or self-care (01) | DRG 483 ==
LOC: MEDSUR 05:38
PROVIDERS: ADMIT Orthopaedic Surgery; ATTEND Orthopaedic Surgery